=== PATIENT | female | born 1950 | race Caucasian/White ===

== ENCOUNTER → 2016-09-20 | Outpatient (CLI) | payer MEDICARE, OTHER ==
[~2016-09-20] MED LIST: ALPR.5T; ASP81TEC PO; ATR20T; ATR20T PO; CHOL200018 PO; CITA40TA19; CPR500T PO; CTLP20T; CTLP20T PO; CYAN250014 PO; Cod Liver Oil PO; DARI15TA4; DARI15TA4 PO; DOCU-161 PO; DOXY100C42 PO; GABA-486 PO; GABA-490 PO; GBPN300C PO; GLIP10TA13 PO; GLIP5TAB13; GLIP5TAB26; HYDR-3812 PO; IBP800T; LATA2.5D5 OP; LEVO500T69 PO; LSRT50T PO; MELO-198 PO; METF-380; METF-380 PO; METF500T4 PO; MTF500T; MTP25TSR; MTP25TSR PO; MULT-305 PO; OMEG1CAP58 PO; OMEP-10; OMEP20CA6; OMG1KC; OMG1KC PO; PIOG45TA; PIOG45TA PO; PRAV20TA3 PO; TRAV5DRO OP; VITA1TAB74 PO
--- OUTSIDE RECORDS SUMMARY | 2016-09-20 11:12 | XMS REPORT | Continuity of Care Document ---
Author Author [facility] Organization [facility] Address Unknown Phone Unavailable Care Team Providers Care [employer] Consultant Name Role Phone PCP Unavailable Source Comments Some departments are not documenting in the electronic medical record. If you do not see the information that you expected, contact Release of Information in the Health Information Management department at [phone] for further assistance in locating additional records.[facility] Active Allergies and Adverse Reactions Allergen Noted Date Severity Reactions Comments Sulfa (Sulfonamide 12/25/2013 UNKNOWN Was a child Antibiotics) Current Medications Prescription Sig. Disp. Refills Start End Date Status Date HYDROcodone/acetaminophen Take 1 Tab by mouth twice Active (NORCO; VICODIN) 5-325 mg daily. tablet gabapentin (NEURONTIN) Take 300 mg by mouth Active 300 mg capsule three times daily. metformin-ER(+) Take 500 mg by mouth Active (FORTAMET) 1,000 mg daily with dinner. tablet citalopram (CELEXA) 40 mg Take 40 mg by mouth Active tablet daily. MULTIVIT WITH Take by mouth. Active CALCIUM,IRON,MIN (WOMEN'S DAILY MULTIVITAMIN PO) fish oil /omega-3 fatty Take 1 Cap by mouth Active acids (SEA-OMEGA) daily. 340/1000 mg capsule latanoprost (XALATAN) Place 1 Drop into or Active 0.005 % ophthalmic around eye(s) at bedtime solution daily. gabapentin (NEURONTIN) Take 100 mg by mouth Active 100 mg capsule daily. topiramate (TOPAMAX) 25 Take 25 mg by mouth twice Active mg tablet daily. Active Problems Problem Noted Date Morbid obesity with BMI of 40.0-44.9, adult (HCC) 01/02/2014 Symptomatic abdominal panniculus 01/02/2014 Social History Tobacco Use Types Packs/Day Years Used Date Never Smoker Last Filed Vital Signs Vital Sign Reading Time Taken Blood Pressure 129/68 06/08/2015 11:45 AM HEALTH PHYSICIST Pulse 69 06/08/2015 11:45 AM HEALTH PHYSICIST Temperature 37.1 C (98.8 F) 12/25/2013 2:48 PM CDT Respiratory Rate - - Height 1.829 m (6') 06/08/2015 11:45 AM HEALTH PHYSICIST Weight 146.965 kg (324 lb) 06/08/2015 11:45 AM HEALTH PHYSICIST Body Mass Index 43.93 06/08/2015 11:45 AM HEALTH PHYSICIST Oxygen Saturation - - Plan of Care Health Maintenance Due Date Last Done Comments Physical (Comprehensive) 1957 Exam Pertussis Vaccine 1962 Tetanus Vaccine 1968 Cervical Cancer Screening 1972 Breast Cancer Screening 1991 Colorectal Cancer 2001 Screening Shingles Vaccine 2011 Influenza Vaccine 03/30/2016 Results from Last 3 Months Not on file
--- NOTE | 2016-09-20 18:52 | Diagnostic Imaging Report ---
Digital mammogram bilateral screening. This study was compared to the prior exams of 07/02/2015, 07/01/2014, and 06/24/2013. At this time, there are no current complaints. The current study was also evaluated with a Computer Aided Detection (CAD) system. FINDINGS: There are scattered fibroglandular densities in both retroareolar regions which could obscure a lesion. Overall, there does not appear to have been any significant change since the previous studies. There is no primary or secondary sign of malignancy noted. IMPRESSION: There is no evidence for malignancy. ACR BI-RADS Category 1: Negative. Result letter will be mailed to the patient. Note: At least 10% of breast cancer is not imaged by mammography. Dictated by: Dictated on workstation # [id number]
== END ==
LOC: RAD 11:08
PROVIDERS: ATTEND Nurse Practitioner Family
DX: Z12.31 Encounter for screening mammogram for malignant neoplasm of breast (principal)
CPT/HCPCS: 77067

== ENCOUNTER 2016-10-16 05:38 | Outpatient (CLI) | payer MEDICARE, OTHER ==
[~2016-10-16] VITALS: Ht 182.9 cm; Wt 149.7 kg
[~2016-10-16 05:38] MED LIST changes: -CYAN250014 PO; -GABA-490 PO; -HYDR-3812 PO
--- OUTSIDE RECORDS SUMMARY | 2016-10-16 05:41 | XMS REPORT | Continuity of Care Document ---
Author Author [facility] Organization [facility] Address Unknown Phone Unavailable Care Team Providers Care Entry Level Paralegal Name Role Phone PCP Unavailable Source Comments Some departments are not documenting in the electronic medical record. If you do not see the information that you expected, contact Release of Information in the Health Information Management department at [phone] for further assistance in locating additional records.[facility] Active Allergies and Adverse Reactions Allergen [...] Taken Blood Pressure 129/68 06/08/2015 11:45 AM WOOD PATTERNMAKER APPRENTICE Pulse 69 06/08/2015 11:45 AM WOOD PATTERNMAKER APPRENTICE Temperature 37.1 C (98.8 F) 12/25/2013 2:48 PM CDT Respiratory Rate - - Height 1.829 m (6') 06/08/2015 11:45 AM WOOD PATTERNMAKER APPRENTICE Weight 146.965 kg (324 lb) 06/08/2015 11:45 AM WOOD PATTERNMAKER APPRENTICE Body Mass Index 43.93 06/08/2015 11:45 AM WOOD PATTERNMAKER APPRENTICE Oxygen Saturation - - Plan of Care Health Maintenance Due Date Last Done Comments Physical (Comprehensive) 1957 Exam Pertussis Vaccine 1962 Tetanus Vaccine 1968 Cervical Cancer Screening 1972 Breast Cancer Screening 1991 Colorectal Cancer 2001 Screening Shingles Vaccine 2011 Influenza Vaccine 03/30/2016 Results from Last 3 Months Not on file
[2016-10-16] MEDS ORDERED: CYAN250014 PO (11:09)
[2016-10-16] MEDS ORDERED: GABA-490 PO ×2 (11:09)
[2016-10-16] MEDS ORDERED: HYDR-3812 PO (11:09)
== END 2016-10-16 12:46 ==
LOC: PREOP 05:38
PROVIDERS: ATTEND Surgery
DX: Z01.818 Encounter for other preprocedural examination (principal); Z86.010 Personal history of colon polyps

== ENCOUNTER 2016-10-19 06:13 | Day surgery (SDC) | payer MEDICARE, OTHER ==
[~2016-10-19] VITALS: Ht 182.9 cm; Wt 149.7 kg
[~2016-10-19 06:13] MED LIST changes: +CYAN250014 PO; +GABA-490 PO; +HYDR-3812 PO
[2016-10-19 06:30] VITALS: BP 149/66
[2016-10-19] MEDS ORDERED: LACTATED RINGERS 1,000 ML IV PRN (06:47)
[2016-10-19] MEDS ORDERED: proPOfol 200 MG/20 ML (DIPRIVAN) VIAL IV ONE (06:49)
[2016-10-19] MEDS ORDERED: LIDOCAINE PF 2% 10 ML (XYLOCAINE) AMP ONE (06:49)
[2016-10-19] MEDS ORDERED: ONDANSETRON 4 MG/2 ML (SDV) Z0FRAN ONE (06:49)
[2016-10-19] MEDS ORDERED: fentaNYL INJECTION 100 MCG/2 ML AMP ONE (06:49)
[2016-10-19] MEDS ORDERED: MIDAZOLAM 2 MG/2 ML (VERSED) VIAL ONE (06:49)
[2016-10-19] MEDS ORDERED: BUPIVACAINE 0.5% 30 ML (SENSORCAINE) VIAL ONE (07:10)
[2016-10-19] MEDS ORDERED: LIDOCAINE 1% INJ 20 ML (XYLOCAINE) VIAL ONE (07:10)
--- NOTE | 2016-10-19 07:42 | Progress Note-Pre Operative ---
Pre-Operative Progress Note H&P Reviewed The H&P was reviewed, patient examined and no changes noted. Date H&P Reviewed: Oct 19, 2016 Time H&P Reviewed: 07:41 Pre-Operative Diagnosis: history of rectal cancer, colon polyps and malfunctioning port JOSHUA MENDEZ DO Oct 19, 2016 7:42 am
[2016-10-19] MEDS ORDERED: SEVOFLURANE (ULTANE) 15 ML INHAL SOLN ONE (09:03)
[2016-10-19] MEDS ORDERED: morphine INJ 10 MG/ML 1ML (SYR OR VIAL) IVP PRN (09:15)
[2016-10-19] MEDS ORDERED: ONDANSETRON 4 MG/2 ML (SDV) Z0FRAN IVP PRN (09:15)
[2016-10-19] MEDS ORDERED: MEPERIDINE (DEMEROL) INJ 50 MG/ML IVP PRN (09:15)
--- NOTE | 2016-10-19 09:28 | Progress Note-Post Operative ---
Post-Operative Progess Note Pre-Operative Diagnosis history of rectal cancer, colon polyps and malfunctioning port Post-Operative Diagnosis same and cecal polyp ascending polyp splenic flexure polyp rectal inflammation Post-Op Procedure Note Date of Procedure: Oct 19, 2016 Name of Procedure: port removal, colonoscopy with hot bx polypectomy x 2, snare polypectomy x 1 and cold rectal biopsy x 1 Procedure Note/Findings see note Anesthesia Type general Estimated blood loss (mL): minimal Specimen(s) collected colon polyps, and rectal inflammation JOSHUA MENDEZ DO Oct 19, 2016 09:28
--- NOTE | 2016-10-19 09:54 | Anesthesia-General Post-Op ---
General Patient Condition Mental Status/LOC: Same as Preop Cardiovascular: Satisfactory Nausea/Vomiting: Absent Respiratory: Satisfactory Pain: Controlled Complications: Absent Post Op Complications Complications None Follow Up Care/Instructions Patient Instructions None needed. Anesthesia/Patient Condition Patient Condition Patient is doing well, no complaints, stable vital signs, no apparent adverse anesthesia problems. No complications reported per nursing. D/C home per [facility] [place] [facility] Criteria: LIBBY Jackson DO Oct 19, 2016 09:54
[2016-10-19 10:05] VITALS: BP 134/52
[2016-10-19 10:35] VITALS: BP 134/58
--- NOTE | 2016-10-19 11:29 | OPERATIVE REPORT ---
PROCEDURE PHYSICIAN: JOSHUA MENDEZ DATE OF PROCEDURE: 10/19/2016 PREOPERATIVE DIAGNOSIS: 1. Malfunctioning port. 2. History of colon polyps. 3. History of rectal cancer. POSTOPERATIVE DIAGNOSIS: 1. Malfunctioning port. 2. Colon polyps. PROCEDURE: Colonoscopy with hot biopsy polypectomy of the cecum with snare polypectomy of the ascending colon and hot biopsy polypectomy of the splenic flexure and colorectal biopsy. SURGEON: Stevie. ANESTHESIA: General. ESTIMATED BLOOD LOSS: Minimal. COMPLICATIONS: None. INDICATIONS: The patient is a 66-year-old female with history of rectal cancer and history of polyps. She has a malfunctioning port. She was explained risk and benefits of the procedure and wished to proceed with procedure. Consent was signed on the chart. PROCEDURE: The patient was taken to the operating room. She was prepped and draped in sterile fashion. A surgical pause was performed. Local anesthetic of 0.5% Marcaine 1% lidocaine 50/50 ratio was used to anesthetize the area of the port. Incision was made through the existing scar. Cautery was used to dissect down to the port which was then mobilized and released. The port and catheter were removed in its entirety. Hemostasis was achieved. Subcutaneous tissues were then reapproximated using 3-0 Vicryl. The skin was then closed using 4-0 Vicryl in a running subcuticular fashion. The area was then washed and dried and Mastisol and Steri-Strips were applied and sterile bandages were applied. The patient tolerated the procedure well. Colonoscopy was then performed. Digital rectal exam was performed. There was a foreign body such as a suture was able to be palpated and the anastomosis line was noted. The scope was inserted through the anus into the rectum, where the anastomosis was visualized. There was a piece of suture that was poking out with some slight inflammation around this area. The scope was inserted and advanced all the way to the cecum with minimal difficulty. Within the cecum there was a small polyp, which hot biopsy polypectomy was performed. The scope was then slowly retracted back. There was a little bit larger polyp in the ascending colon, which snare polypectomy was performed. The scope was continued be slowly retracted back. There were no polyps, masses or ulcerations within the transverse colon. At the splenic flexure there is another small polyp, which hot biopsy polypectomy was performed. The scope was then slowly retracted all the way back in the rectum noting no other pathology. Once in the rectum, there was the suture that was present with a little bit of inflammation around this. Biopsy of inflamed area was obtained. The scope was inserted and retracted multiple times noting no other pathology. The scope was then retracted until completely removed noting no other pathology. RECOMMENDATIONS: The patient will need to follow-up in 2 weeks to discuss pathology. Would recommend repeat colonoscopy in 6 to 12 months to reevaluate. If she has any problems prior to that, she should be reevaluated at that time. Job ID: [id number] Dictated Date: 10/19/2016 09:32:20 Water And Fire Technician Date: 10/19/2016 11:19:30 / kadi
--- OUTSIDE RECORDS SUMMARY | 2016-10-22 08:09 | XMS REPORT | Continuity of Care Document ---
Author Author [facility] Organization [facility] Address Unknown Phone Unavailable Care Team Providers Care Corrosion Control Fitter Name Role Phone PCP Unavailable Source Comments Some departments are not documenting in the electronic medical record. If you do not see the information that you expected, contact Release of Information in the Health Information Management department at [phone] for further assistance in locating additional records.[facility] Active Allergies and Adverse Reactions Allergen [...] Taken Blood Pressure 129/68 06/08/2015 11:45 AM MANAGER BIOSTATISTICS Pulse 69 06/08/2015 11:45 AM MANAGER BIOSTATISTICS Temperature 37.1 C (98.8 F) 12/25/2013 2:48 PM CDT Respiratory Rate - - Height 1.829 m (6') 06/08/2015 11:45 AM MANAGER BIOSTATISTICS Weight 146.965 kg (324 lb) 06/08/2015 11:45 AM MANAGER BIOSTATISTICS Body Mass Index 43.93 06/08/2015 11:45 AM MANAGER BIOSTATISTICS Oxygen Saturation - - Plan of Care Health Maintenance Due Date Last Done Comments Hepatitis C Screening 1950 Physical (Comprehensive) 1958 Exam Pertussis Vaccine 1962 Tetanus Vaccine 1968 Breast Cancer Screening 1991 Colorectal Cancer 2001 Screening Shingles Vaccine 2011 Osteoporosis Screening 2016 Prevnar/Pneumovax (#1) 2016 Influenza Vaccine 03/30/2017 Results from Last 3 Months Not on file
--- OUTSIDE RECORDS SUMMARY | 2016-10-22 08:13 | XMS REPORT | Continuity of Care Document ---
Author Author [facility] Organization [facility] Address Unknown Phone Unavailable Allergies Active Description Code Type Severity Reaction Onset Reported/Identified Relationship to Patient Clinical Status Yes Sulfa (Sulfonamide Antibiotics) [id number] Drug Allergy Unknown N/A 11/25/2015 Yes Sulfa (Sulfonamide Antibiotics) [id number] Drug Allergy Unknown HAD A CHILD 10/16/2016 Medications Problems Date Dx Coded Attending Type Code Diagnosis Diagnosed By 04/04/2009 Ot 154.1 04/04/2009 Ot 196.2 04/04/2009 Ot 250.00 04/04/2009 Ot 278.01 04/04/2009 Ot 311 04/04/2009 Ot 327.23 04/04/2009 Ot 401.9 04/04/2009 Ot V44.3 04/04/2009 Ot V58.69 05/24/2009 Ot 250.00 05/24/2009 Ot 272.4 05/24/2009 Ot 300.4 05/24/2009 Ot 401.9 05/24/2009 Ot 536.8 05/24/2009 Ot 682.2 05/24/2009 Ot 716.90 05/24/2009 Ot 729.6 05/24/2009 Ot 998.4 05/24/2009 Ot 998.59 05/24/2009 Ot 998.83 05/24/2009 Ot V10.06 05/24/2009 Ot V45.72 09/01/2009 Ot 154.0 09/01/2009 Ot 197.7 09/01/2009 Ot 278.01 09/01/2009 Ot 788.1 09/01/2009 Ot 788.41 09/01/2009 Ot V45.3 09/01/2009 Ot V58.69 09/01/2009 Ot V58.81 12/08/2009 Ot 154.0 12/08/2009 Ot 197.7 12/08/2009 Ot 244.9 12/08/2009 Ot 250.00 12/08/2009 Ot 278.01 12/08/2009 Ot 311 12/08/2009 Ot 327.23 12/08/2009 Ot 401.9 12/08/2009 Ot V45.3 12/08/2009 Ot V45.82 12/08/2009 Ot V58.66 12/08/2009 Ot V58.69 12/08/2009 Ot V87.41 12/16/2009 Ot 154.0 12/16/2009 Ot V15.3 12/16/2009 Ot V58.69 12/16/2009 Ot V87.41 03/20/2010 Ot 154.0 03/20/2010 Ot 197.7 03/20/2010 Ot 244.9 03/20/2010 Ot 250.00 03/20/2010 Ot 278.01 03/20/2010 Ot 311 03/20/2010 Ot 327.23 03/20/2010 Ot 401.9 03/20/2010 Ot V45.3 03/20/2010 Ot V45.82 03/20/2010 Ot V58.11 03/20/2010 Ot V58.66 03/20/2010 Ot V58.69 06/22/2010 Ot 154.0 MAL BETI RECTOSIGMOID JCT 06/22/2010 Ot 197.7 SECOND MALIG BETI LIVER 06/22/2010 Ot 244.9 HYPOTHYROIDISM NOS 06/22/2010 Ot 250.00 DIAB HAILEY WO COMPL, TYPE II OR UNSPEC TY 06/22/2010 Ot 278.01 MORBID OBESITY 06/22/2010 Ot 311 DEPRESSIVE DISORDER NEC 06/22/2010 Ot 327.23 OBSTRUCTIVE SLEEP APNEA (ADULT) (PEDIATR 06/22/2010 Ot 401.9 HYPERTENSION NOS 06/22/2010 Ot V15.3 HX OF IRRADIATION 06/22/2010 Ot V45.3 INTESTINAL BYPASS STATUS 06/22/2010 Ot V45.82 PERCUTANEOUS TRANSLUM CORON ANGIOPLASTY 06/22/2010 Ot V58.66 LONG-TERM (CURRENT) USE OF ASPIRIN 06/22/2010 Ot V58.69 OTH MED,LT,CURRENT USE 06/22/2010 Ot V87.41 PERSONAL HISTORY OF ANTINEOPLASTIC CHEMO 10/10/2010 Ot V10.06 HX-RECTAL ANAL MALIGN 10/10/2010 Ot V67.09 SURGERY FOLLOW-UP, OTHER SURGERY 10/25/2010 Ot 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.0 MAL BETI RECTOSIGMOID JCT 10/25/2010 Ot 197.7 SECOND MALIG BETI LIVER 10/25/2010 Ot 244.9 HYPOTHYROIDISM NOS 10/25/2010 Ot 250.00 DIAB HAILEY WO COMPL, TYPE II OR UNSPEC TY 10/25/2010 Ot 278.01 MORBID OBESITY 10/25/2010 Ot 311 DEPRESSIVE DISORDER NEC 10/25/2010 Ot 327.23 OBSTRUCTIVE SLEEP APNEA (ADULT) (PEDIATR 10/25/2010 Ot 401.9 HYPERTENSION NOS 10/25/2010 Ot V15.3 HX OF IRRADIATION 10/25/2010 Ot V45.3 INTESTINAL BYPASS STATUS 10/25/2010 Ot V45.82 PERCUTANEOUS TRANSLUM CORON ANGIOPLASTY 10/25/2010 Ot V58.66 LONG-TERM (CURRENT) USE OF ASPIRIN 10/25/2010 Ot V58.69 OTH MED,LT,CURRENT USE 10/25/2010 Ot V58.81 FIT/ADJ VASCULAR CATHETER 10/25/2010 Ot V87.41 PERSONAL HISTORY OF ANTINEOPLASTIC CHEMO 12/29/2010 Ot 041.3 KLEBSIELLA PNEUMONIAE 12/29/2010 Ot 041.4 E. COLI INFECT NOS 12/29/2010 Ot 250.00 DIAB HAILEY WO COMPL, TYPE II OR UNSPEC TY 12/29/2010 Ot 272.4 HYPERLIPIDEMIA NEC/NOS 12/29/2010 Ot 278.01 MORBID OBESITY 12/29/2010 Ot 311 DEPRESSIVE DISORDER NEC 12/29/2010 Ot 401.9 HYPERTENSION NOS 12/29/2010 Ot 599.0 URIN TRACT INFECTION NOS 12/29/2010 Ot 786.59 CHEST PAIN NEC 12/29/2010 Ot V85.43 BODY MASS INDEX 50.0-59.9, ADULT 03/01/2011 Ot 154.0 MAL BETI RECTOSIGMOID JCT 03/01/2011 Ot 197.7 SECOND MALIG BETI LIVER 03/01/2011 Ot 250.00 DIAB HAILEY WO COMPL, TYPE II OR UNSPEC TY 03/01/2011 Ot 278.01 MORBID OBESITY 03/01/2011 Ot V58.69 OTH MED,LT,CURRENT USE 03/01/2011 Ot V58.83 ENCOUNTER FOR THERAPEUTIC DRUG MONITORIN 07/04/2011 Ot 154.0 MAL BETI RECTOSIGMOID JCT 07/04/2011 Ot 197.7 SECOND MALIG BETI LIVER 07/04/2011 Ot 250.00 DIAB HAILEY WO COMPL, TYPE II OR UNSPEC TY 07/04/2011 Ot V58.69 OTH MED,LT,CURRENT USE 07/04/2011 Ot V58.81 FIT/ADJ VASCULAR CATHETER 10/18/2011 Ot 154.0 MAL BETI RECTOSIGMOID JCT 10/18/2011 Ot 197.7 SECOND MALIG BETI LIVER 10/18/2011 Ot 250.00 DIAB HAILEY WO COMPL, TYPE II OR UNSPEC TY 10/18/2011 Ot V58.69 OTH MED,LT,CURRENT USE 10/18/2011 Ot V58.81 FIT/ADJ VASCULAR CATHETER 02/21/2012 Ot 154.0 MAL BETI RECTOSIGMOID JCT 02/21/2012 Ot 197.7 SECOND MALIG BETI LIVER 02/21/2012 Ot 250.00 DIAB HAILEY WO COMPL, TYPE II OR UNSPEC TY 02/21/2012 Ot 780.79 OTH MALAISE FATIGUE 02/21/2012 Ot 788.41 URINARY FREQUENCY 02/21/2012 Ot 788.63 URGENCY OF URINATION 02/21/2012 Ot 791.9 ABN URINE FINDINGS NEC 02/21/2012 Ot V58.69 OTH MED,LT,CURRENT USE 06/16/2012 Ot 709.8 SKIN DISORDERS NEC 06/28/2012 Ot 530.11 REFLUX ESOPHAGITIS 06/28/2012 Ot 535.40 OTH SPECIFIED GASTRITIS,W/O MENTION OF H 06/28/2012 Ot V10.06 HX-RECTAL ANAL MALIGN 06/28/2012 Ot V67.09 SURGERY FOLLOW-UP, OTHER SURGERY 08/20/2012 Ot 154.0 MAL BETI RECTOSIGMOID JCT 08/20/2012 Ot 197.7 SECOND MALIG BETI LIVER 08/20/2012 Ot 250.00 DIAB HAILEY WO COMPL, TYPE II OR UNSPEC TY 08/20/2012 Ot V58.69 OTH MED,LT,CURRENT USE 11/18/2012 Ot 250.00 DIAB HAILEY WO COMPL, TYPE II OR UNSPEC TY 11/18/2012 Ot 272.4 HYPERLIPIDEMIA NEC/NOS 11/18/2012 Ot 401.9 HYPERTENSION NOS 11/18/2012 Ot V58.69 OTH MED,LT,CURRENT USE 11/19/2012 Ot 154.0 MAL BETI RECTOSIGMOID JCT 11/19/2012 Ot 197.7 SECOND MALIG BETI LIVER 11/19/2012 Ot 250.00 DIAB HAILEY WO COMPL, TYPE II OR UNSPEC TY 11/19/2012 Ot V58.69 OTH MED,LT,CURRENT USE 05/07/2013 LEONEL CURRAN Ot 154.0 MAL BETI RECTOSIGMOID JCT 05/07/2013 MAGDY, BOBAN N Ot 197.7 SECOND MALIG BETI LIVER 05/07/2013 MAGDY, BOBAN N Ot 250.00 DIAB HAILEY WO COMPL, TYPE II OR UNSPEC TY 05/07/2013 MAGDY, RAZAN N Ot V58.69 OTH MED,LT,CURRENT USE 08/11/2013 MAGDY, BOBAN N Ot 154.0 MAL BETI RECTOSIGMOID JCT 08/11/2013 MAGDY, BOBAN N Ot 197.7 SECOND MALIG BETI LIVER 08/11/2013 MAGDY, BOBAN N Ot 250.00 DIAB HAILEY WO COMPL, TYPE II OR UNSPEC TY 08/11/2013 MAGDY, BOBAN N Ot V58.69 OTH MED,LT,CURRENT USE 01/28/2014 MAGDY BOBAN N Ot 154.0 MAL BETI RECTOSIGMOID JCT 01/28/2014 MAGDY, BOBAN N Ot 197.7 SECOND MALIG BETI LIVER 01/28/2014 MAGDY, BOBAN N Ot 250.00 DIAB HAILEY WO COMPL, TYPE II OR UNSPEC TY 01/28/2014 MAGDYRAZAN N Ot V58.69 OTH MED,LT,CURRENT USE 03/22/2014 FABIOLA PHILLIPS Ot 882.1 OPN WOUND HAND-COMPLICAT 03/22/2014 FABIOLA PHILLIPS Ot E000.8 OTHER EXTERNAL CAUSE STATUS 03/22/2014 FABIOLA PHILLIPS Ot E001.0 ACTIVITIES INVOLVING WALKING, MARCHING A 03/22/2014 FABIOLA PHILLIPS Ot E849.0 ACCIDENT IN HOME 03/22/2014 FABIOLA PHILLIPS Ot E920.8 ACC-CUTTING INSTRUM NEC 03/22/2014 FABIOLA PHILLIPS Ot V06.1 [id number], COMBINED [ 07/05/2014 MAGDYLEONEL N Ot 154.0 MAL BETI RECTOSIGMOID JCT 07/05/2014 MAGDY BOBAN N Ot 197.7 SECOND MALIG BETI LIVER 07/05/2014 MAGDY, BOBAN N Ot 250.00 DIAB HAILEY WO COMPL, TYPE II OR UNSPEC TY 07/05/2014 MAGDY BOBAN N Ot V58.69 OTH MED,LT,CURRENT USE 07/05/2014 MAGDY, BOBAN N Ot V58.81 FIT/ADJ VASCULAR CATHETER 07/14/2014 COTY TERRY Saldana HYPERTRICHOLOGIST Ot 154.1 07/29/2014 COTY TERRY Saldana HYPERTRICHOLOGIST Ot V76.12 08/03/2014 RIA QUIROZ, EDGAR A Ot 250.00 08/03/2014 RIA QUIROZ, EDGAR A Ot 272.4 08/03/2014 RIA QUIROZ, EDGAR A Ot 401.9 08/03/2014 RIA QUIROZ, EDGAR A Ot V58.69 08/03/2014 RIA QUIROZ, EDGAR A Ot V72.62 08/05/2014 COTY TERRY Saldana HYPERTRICHOLOGIST Ot 250.00 08/05/2014 COTY TERRY S HYPERTRICHOLOGIST Ot 278.01 08/05/2014 COTY TERRY S HYPERTRICHOLOGIST Ot 465.9 08/05/2014 COTY TERRY Saldana HYPERTRICHOLOGIST Ot V10.06 08/05/2014 COTY TERRY Saldana HYPERTRICHOLOGIST Ot V58.69 08/05/2014 COTY TERRY S HYPERTRICHOLOGIST Ot V67.1 08/05/2014 COTY TERRY Saldana HYPERTRICHOLOGIST Ot V67.2 08/05/2014 COTY TERRY Saldana HYPERTRICHOLOGIST Ot V85.39 09/04/2014 Ot 153.9 09/04/2014 Ot 562.10 09/04/2014 Ot 154.1 09/04/2014 Ot 250.00 09/04/2014 Ot 153.9 09/04/2014 Ot 154.1 09/04/2014 Ot 250.00 09/04/2014 Ot 272.4 09/04/2014 Ot 278.01 09/04/2014 Ot 401.9 09/04/2014 Ot 998.59 09/04/2014 Ot 154.0 09/04/2014 Ot 250.00 09/04/2014 Ot 278.01 09/04/2014 Ot 998.59 09/04/2014 Ot V58.69 09/04/2014 Ot 244.9 09/04/2014 Ot 250.00 09/04/2014 Ot 250.00 09/04/2014 Ot 401.9 09/04/2014 Ot 250.00 09/04/2014 Ot 401.9 09/04/2014 Ot 154.1 09/04/2014 Ot 250.00 09/04/2014 Ot 244.9 09/04/2014 Ot 250.00 09/04/2014 Ot 272.4 09/04/2014 Ot 250.00 09/04/2014 Ot 250.00 09/04/2014 Ot 278.01 09/04/2014 Ot 401.9 09/04/2014 Ot 154.1 09/04/2014 Ot 250.00 09/04/2014 Ot 793.7 09/04/2014 Ot V76.12 09/04/2014 Ot 707.15 09/04/2014 Ot 715.37 09/04/2014 Ot 786.2 09/04/2014 Ot 250.00 09/04/2014 Ot 729.5 09/04/2014 Ot 250.00 09/04/2014 Ot 780.79 09/04/2014 Ot 250.00 09/04/2014 Ot 272.4 09/04/2014 Ot 401.9 09/04/2014 Ot V72.84 09/04/2014 Ot 250.00 09/04/2014 Ot 272.4 09/04/2014 Ot 401.9 09/04/2014 Ot V58.69 09/04/2014 ANGEL QUIROZ, ISA Lau Ot 272.4 09/04/2014 ANGEL QUIROZ, ISA Lau Ot 401.9 09/04/2014 TERRY ANSARI HYPERTRICHOLOGIST Ot 278.01 09/04/2014 TERRY ANSARI HYPERTRICHOLOGIST Ot V10.06 09/04/2014 TERRY ANSARI HYPERTRICHOLOGIST Ot V58.69 09/04/2014 TERRY ANSARI HYPERTRICHOLOGIST Ot V67.1 09/04/2014 TERRY ANSAIR HYPERTRICHOLOGIST Ot V67.2 09/04/2014 TERRY ANSARI HYPERTRICHOLOGIST Ot V85.41 09/04/2014 LEONEL CURRAN Ot V76.12 09/04/2014 TERRY ANSARI HYPERTRICHOLOGIST Ot 250.00 09/04/2014 TERRY ANSARI HYPERTRICHOLOGIST Ot 278.01 09/04/2014 TERRY ANSARI HYPERTRICHOLOGIST Ot 465.9 09/04/2014 TERRY ANSARI HYPERTRICHOLOGIST Ot V10.06 09/04/2014 TERRY ANSARI HYPERTRICHOLOGIST Ot V58.69 09/04/2014 TERRY ANSARI HYPERTRICHOLOGIST Ot V67.1 09/04/2014 TERRY ANSARI HYPERTRICHOLOGIST Ot V67.2 09/04/2014 TERRY ANSARI HYPERTRICHOLOGIST Ot V85.39 09/04/2014 TERRY ANSARI HYPERTRICHOLOGIST Ot 154.1 09/04/2014 TERRY ANSARI HYPERTRICHOLOGIST Ot V76.12 09/04/2014 RIA QUIROZ, EDGAR A Ot 250.00 09/04/2014 RIA QUIROZ, EDGAR A Ot 272.4 09/04/2014 RIA QUIROZ, EDGAR A Ot 401.9 09/04/2014 RIA QUIROZ, EDGAR A Ot V58.69 09/04/2014 RIA QUIROZ, EDGAR A Ot V72.62 09/04/2014 LEONEL CURRAN N Ot 154.0 09/04/2014 LEONEL CURRAN N Ot 197.7 09/04/2014 LEONEL CURRAN N Ot 250.00 09/04/2014 LEONEL CURRAN N Ot V58.69 11/24/2014 Ot 244.9 11/24/2014 Ot 250.00 11/24/2014 Ot 250.00 11/24/2014 Ot 401.9 11/24/2014 Ot 250.00 11/24/2014 Ot 401.9 11/24/2014 Ot 154.1 11/24/2014 Ot 250.00 11/24/2014 Ot 244.9 11/24/2014 Ot 250.00 11/24/2014 Ot 272.4 11/24/2014 Ot 250.00 11/24/2014 Ot 250.00 11/24/2014 Ot 278.01 11/24/2014 Ot 401.9 11/24/2014 Ot 154.1 11/24/2014 Ot 250.00 11/24/2014 Ot 793.7 11/24/2014 Ot V76.12 11/24/2014 Ot 707.15 11/24/2014 Ot 715.37 11/24/2014 Ot 786.2 11/24/2014 Ot 250.00 11/24/2014 Ot 729.5 11/24/2014 Ot 250.00 11/24/2014 Ot 780.79 11/24/2014 Ot 250.00 11/24/2014 Ot 272.4 11/24/2014 Ot 401.9 11/24/2014 Ot V72.84 11/24/2014 Ot 250.00 11/24/2014 Ot 272.4 11/24/2014 Ot 401.9 11/24/2014 Ot V58.69 11/24/2014 ANGEL QUIROZ, ISA Lau Ot 272.4 11/24/2014 ANGEL QUIROZ, ISA Lau Ot 401.9 11/24/2014 TERRY ANSARI HYPERTRICHOLOGIST Ot 278.01 11/24/2014 TERRY ANSARI S HYPERTRICHOLOGIST Ot V10.06 11/24/2014 ANSARITERRY Saldana S HYPERTRICHOLOGIST Ot V58.69 11/24/2014 TERRY ANSARI S HYPERTRICHOLOGIST Ot V67.1 11/24/2014 ANSARITERRY Saldana S HYPERTRICHOLOGIST Ot V67.2 11/24/2014 ANSARITERRY S HYPERTRICHOLOGIST Ot V85.41 11/24/2014 LEONEL CURRAN N Ot V76.12 11/24/2014 ANSARITERRY Saldana S HYPERTRICHOLOGIST Ot 250.00 11/24/2014 ANSARITERRY Saldana S HYPERTRICHOLOGIST Ot 278.01 11/24/2014 ANSARITERRY Saldana S HYPERTRICHOLOGIST Ot 465.9 11/24/2014 ANSARITERRY Saldana S HYPERTRICHOLOGIST Ot V10.06 11/24/2014 ANSARITERRY Saldana S HYPERTRICHOLOGIST Ot V58.69 11/24/2014 ANSARITERRY Saldana S HYPERTRICHOLOGIST Ot V67.1 11/24/2014 ANSARITERRY Saldana S HYPERTRICHOLOGIST Ot V67.2 11/24/2014 ANSARITERRY Saldana S HYPERTRICHOLOGIST Ot V85.39 11/24/2014 ANSARITERRY Saldana S HYPERTRICHOLOGIST Ot 154.1 11/24/2014 ANSARITERRY Saldana S HYPERTRICHOLOGIST Ot V76.12 11/24/2014 RIA QUIROZ, EDGAR Larios Ot 250.00 11/24/2014 RIA QUIROZ, EDGAR Larios Ot 272.4 11/24/2014 RIA QUIROZ, EDGAR Larios Ot 401.9 11/24/2014 RIA QUIROZ, EDGAR Larios Ot V58.69 11/24/2014 RIA QUIROZ, EDGAR Larios Ot V72.62 11/24/2014 LEONEL CURRAN N Ot 154.0 11/24/2014 LEONEL CURRAN N Ot 197.7 11/24/2014 MAGDYLEONEL SOTO N Ot 250.00 11/24/2014 MAGDYLEONEL SOTO N Ot V58.69 11/24/2014 LEONEL CURRAN N Ot 154.0 11/24/2014 MAGDYLEONEL SOTO N Ot 197.7 11/24/2014 MAGDYLEONEL SOTO N Ot 250.00 11/24/2014 LEONEL CURRAN N Ot V58.69 11/24/2014 MAGDYLEONEL SOTO N Ot 154.0 11/24/2014 MAGDYLEONEL SOTO N Ot 197.7 11/24/2014 MAGDYLEONEL SOTO N Ot 250.00 11/24/2014 MAGDYLEONEL SOTO N Ot V58.69 11/25/2014 MAGDYLEONEL SOTO N Ot 154.0 11/25/2014 MAGDYLEONEL SOTO N Ot 197.7 11/25/2014 MAGDYLEONEL SOTO N Ot 250.00 11/25/2014 LEONEL CURRAN N Ot V58.69 12/26/2014 TERRY ANSARI HYPERTRICHOLOGIST Ot 278.01 12/26/2014 TERRY ANSARI HYPERTRICHOLOGIST Ot V10.06 12/26/2014 TERRY ANSARI HYPERTRICHOLOGIST Ot V45.86 12/26/2014 TERRY ANSARI HYPERTRICHOLOGIST Ot V58.69 12/26/2014 TERRY ANSARI HYPERTRICHOLOGIST Ot V67.1 12/26/2014 TERRY ANSARI HYPERTRICHOLOGIST Ot V67.2 12/26/2014 TERRY ANSARI HYPERTRICHOLOGIST Ot V85.41 12/27/2014 RIA QUIROZ, EDGAR Larios Ot 250.00 12/27/2014 RIA QUIROZ, EDGAR Larios Ot 272.4 02/11/2015 Ot 244.9 02/11/2015 Ot 250.00 02/11/2015 Ot 250.00 02/11/2015 Ot 401.9 02/11/2015 Ot 250.00 02/11/2015 Ot 401.9 02/11/2015 Ot 154.1 02/11/2015 Ot 250.00 02/11/2015 Ot 244.9 02/11/2015 Ot 250.00 02/11/2015 Ot 272.4 02/11/2015 Ot 250.00 02/11/2015 Ot 250.00 02/11/2015 Ot 278.01 02/11/2015 Ot 401.9 02/11/2015 Ot 154.1 02/11/2015 Ot 250.00 02/11/2015 Ot 793.7 02/11/2015 Ot V76.12 02/11/2015 Ot 707.15 02/11/2015 Ot 715.37 02/11/2015 Ot 786.2 02/11/2015 Ot 250.00 02/11/2015 Ot 729.5 02/11/2015 Ot 250.00 02/11/2015 Ot 780.79 02/11/2015 Ot 250.00 02/11/2015 Ot 272.4 02/11/2015 Ot 401.9 02/11/2015 Ot V72.84 02/11/2015 Ot 250.00 02/11/2015 Ot 272.4 02/11/2015 Ot 401.9 02/11/2015 Ot V58.69 02/11/2015 ANGEL QUIROZ, ISA Lau Ot 272.4 02/11/2015 ANGEL QUIROZ, ISA Lau Ot 401.9 02/11/2015 COTYTERRY S HYPERTRICHOLOGIST Ot 278.01 02/11/2015 COTY TERRY S HYPERTRICHOLOGIST Ot V10.06 02/11/2015 COTY TERRY S HYPERTRICHOLOGIST Ot V58.69 02/11/2015 COTY TERRY S HYPERTRICHOLOGIST Ot V67.1 02/11/2015 COTY TERRY S HYPERTRICHOLOGIST Ot V67.2 02/11/2015 COTY TERRY S HYPERTRICHOLOGIST Ot V85.41 02/11/2015 LEONEL CURRAN Ot V76.12 02/11/2015 COTY TERRY S HYPERTRICHOLOGIST Ot 250.00 02/11/2015 ANSARI, TERRY S HYPERTRICHOLOGIST Ot 278.01 02/11/2015 COTY TERRY S HYPERTRICHOLOGIST Ot 465.9 02/11/2015 ANSARI, TERRY S HYPERTRICHOLOGIST Ot V10.06 02/11/2015 ANSARI, TERRY S HYPERTRICHOLOGIST Ot V58.69 02/11/2015 ANSARI, TERRY S HYPERTRICHOLOGIST Ot V67.1 02/11/2015 ANSARI, TERRY S HYPERTRICHOLOGIST Ot V67.2 02/11/2015 COTY TERRY S HYPERTRICHOLOGIST Ot V85.39 02/11/2015 COTY TERRY S HYPERTRICHOLOGIST Ot 154.1 02/11/2015 COTY TERRY S HYPERTRICHOLOGIST Ot V76.12 02/11/2015 RIA QUIROZ, EDGAR Larios Ot 250.00 02/11/2015 RIA QUIROZ, EDGAR A Ot 272.4 02/11/2015 RIA QUIROZ, EDGAR A Ot 401.9 02/11/2015 RIA QUIROZ, EDGAR A Ot V58.69 02/11/2015 RIA QUIROZ, EDGAR A Ot V72.62 02/11/2015 MAGDY, BOBAN N Ot 154.0 02/11/2015 MAGDY, BOBAN N Ot 197.7 02/11/2015 MAGYD, BOBAN N Ot 250.00 02/11/2015 MAGDY, BOBAN N Ot V58.69 02/11/2015 TERRY ANSARI S HYPERTRICHOLOGIST Ot 278.01 02/11/2015 TERRY ANSARI S HYPERTRICHOLOGIST Ot V10.06 02/11/2015 FATOU ANSARIAH S HYPERTRICHOLOGIST Ot V45.86 02/11/2015 ANSARI HILAH S HYPERTRICHOLOGIST Ot V58.69 02/11/2015 TERRY ANSARI S HYPERTRICHOLOGIST Ot V67.1 02/11/2015 TERRY ANSARI S HYPERTRICHOLOGIST Ot V67.2 02/11/2015 TERRY ANSARI S HYPERTRICHOLOGIST Ot V85.41 02/11/2015 RIA QUIROZ, EDGAR A Ot 250.00 02/11/2015 RIA QUIROZ, EDGAR A Ot 272.4 02/11/2015 MAGDY, BOBAN N Ot 154.0 02/11/2015 MAGDY, BOBAN N Ot 197.7 02/11/2015 MAGDY, BOBAN N Ot 250.00 02/11/2015 MAGDY, BOBAN N Ot V58.69 02/16/2015 MAGDY, BOBAN N Ot 154.0 02/16/2015 MAGDY, BOBAN N Ot 197.7 02/16/2015 MAGDY, BOBAN N Ot 250.00 02/16/2015 MAGDY, BOBAN N Ot V58.69 02/22/2015 MAGDY, BOBAN N Ot 154.0 MAL BETI RECTOSIGMOID JCT 02/22/2015 MAGDY, BOBAN N Ot 197.7 SECOND MALIG BETI LIVER 02/22/2015 MAGDY, BOBAN N Ot 250.00 DIAB HAILEY WO COMPL, TYPE II OR UNSPEC TY 02/22/2015 MAGDY, BOBAN N Ot V58.69 OTH MED,LT,CURRENT USE 02/22/2015 MAGDY, BOBAN N Ot V58.81 FIT/ADJ VASCULAR CATHETER 05/11/2015 LEONEL CURRAN N Ot 154.0 05/11/2015 LEONEL CURRAN Ot 197.7 05/11/2015 LEONEL CURRAN Ot 250.00 05/11/2015 LEONEL CURRAN Ot V58.69 06/01/2015 TERRY ANSARI HYPERTRICHOLOGIST Ot C19 06/01/2015 TERRY ANSARI HYPERTRICHOLOGIST Ot C78.7 06/01/2015 TERRY ANSARI HYPERTRICHOLOGIST Ot E11.9 06/01/2015 TERRY ANSARI HYPERTRICHOLOGIST Ot Z79.899 06/19/2015 LEONEL CURRAN Ot 154.0 06/19/2015 LEONEL CURRAN Ot 197.7 06/19/2015 LEONEL CURRAN Ot 250.00 06/19/2015 LEONEL CURRAN Ot V58.69 07/02/2015 Ot 154.1 07/02/2015 Ot 250.00 07/02/2015 Ot 244.9 07/02/2015 Ot 250.00 07/02/2015 Ot 272.4 07/02/2015 Ot 250.00 07/02/2015 Ot 250.00 07/02/2015 Ot 278.01 07/02/2015 Ot 401.9 07/02/2015 Ot 154.1 07/02/2015 Ot 250.00 07/02/2015 Ot 793.7 07/02/2015 Ot V76.12 07/02/2015 Ot 707.15 07/02/2015 Ot 715.37 07/02/2015 Ot 786.2 07/02/2015 Ot 250.00 07/02/2015 Ot 729.5 07/02/2015 Ot 250.00 07/02/2015 Ot 780.79 07/02/2015 Ot 250.00 07/02/2015 Ot 272.4 07/02/2015 Ot 401.9 07/02/2015 Ot V72.84 07/02/2015 Ot 250.00 07/02/2015 Ot 272.4 07/02/2015 Ot 401.9 07/02/2015 Ot V58.69 07/02/2015 ANGEL QUIROZ, ISA Lau Ot 272.4 07/02/2015 ISA ORTIZ MD Ot 401.9 07/02/2015 TERRY ANSARI HYPERTRICHOLOGIST Ot 278.01 07/02/2015 ANSARITERRY Saldana S HYPERTRICHOLOGIST Ot V10.06 07/02/2015 ANSARITERRY Saldana S HYPERTRICHOLOGIST Ot V58.69 07/02/2015 ANSARITERRY Saldana S HYPERTRICHOLOGIST Ot V67.1 07/02/2015 TERRY ANSARI S HYPERTRICHOLOGIST Ot V67.2 07/02/2015 ANSARITERRY Saldana S HYPERTRICHOLOGIST Ot V85.41 07/02/2015 LEONEL CURRAN Ot V76.12 07/02/2015 ANSARITERRY Saldana S HYPERTRICHOLOGIST Ot 250.00 07/02/2015 ANSARITERRY Saldana S HYPERTRICHOLOGIST Ot 278.01 07/02/2015 ANSARITERRY Saldana S HYPERTRICHOLOGIST Ot 465.9 07/02/2015 ANSARITERRY Saldana S HYPERTRICHOLOGIST Ot V10.06 07/02/2015 ANSARITERRY Saldana S HYPERTRICHOLOGIST Ot V58.69 07/02/2015 ANSARITERRY Saldana S HYPERTRICHOLOGIST Ot V67.1 07/02/2015 ANSARITERRY Saldana S HYPERTRICHOLOGIST Ot V67.2 07/02/2015 ANSARITERRY Saldana S HYPERTRICHOLOGIST Ot V85.39 07/02/2015 ANSARITERRY Saldana S HYPERTRICHOLOGIST Ot 154.1 07/02/2015 ANSARITERRY Saldana S HYPERTRICHOLOGIST Ot V76.12 07/02/2015 RIA QUIROZ, EDGAR A Ot 250.00 07/02/2015 RIA QUIROZ, EDGAR A Ot 272.4 07/02/2015 RIA QUIROZ, EDGAR A Ot 401.9 07/02/2015 RIA QUIROZ, EDGAR A Ot V58.69 07/02/2015 RIA QUIROZ, EDGAR A Ot V72.62 07/02/2015 ANSARITERRY Saldana HYPERTRICHOLOGIST Ot 278.01 07/02/2015 ANSARITERRY Saldana S HYPERTRICHOLOGIST Ot V10.06 07/02/2015 ANSARITERRY S HYPERTRICHOLOGIST Ot V45.86 07/02/2015 ANSARITERRY S HYPERTRICHOLOGIST Ot V58.69 07/02/2015 ANSARITERRY S HYPERTRICHOLOGIST Ot V67.1 07/02/2015 ANSARITERRY S HYPERTRICHOLOGIST Ot V67.2 07/02/2015 COTYTERRY S HYPERTRICHOLOGIST Ot V85.41 07/02/2015 RIA QUIROZ, EDGAR Larios Ot 250.00 07/02/2015 RIA QUIROZ, EDGAR Larios Ot 272.4 07/02/2015 MAGDY BOBAN N Ot C19 07/02/2015 MAGDY, BOBAN N Ot C78.7 07/02/2015 MAGDY, BOBAN N Ot E11.9 07/02/2015 MAGDY, BOBAN N Ot Z79.899 07/02/2015 ANSARI HILAH S HYPERTRICHOLOGIST Ot C19 07/02/2015 ANSARI HILAH S HYPERTRICHOLOGIST Ot C78.7 07/02/2015 ANSARI HILAH S HYPERTRICHOLOGIST Ot E11.9 07/02/2015 ANSARI HILAH S HYPERTRICHOLOGIST Ot Z79.899 07/02/2015 DEVIN VIVAS HYPERTRICHOLOGIST Ot E11.9 07/05/2015 DEVIN VIVAS HYPERTRICHOLOGIST Ot E11.9 07/06/2015 ANSARI HILAH S HYPERTRICHOLOGIST Ot Z12.31 07/09/2015 DEVIN VIVAS HYPERTRICHOLOGIST Ot E11.9 07/22/2015 ANSARI, HILAH S HYPERTRICHOLOGIST Ot Z12.31 08/03/2015 MAGDY, BOBAN N Ot C19 08/03/2015 MAGDY, BOBAN N Ot C78.7 08/03/2015 MAGDY, BOBAN N Ot E11.9 08/03/2015 MAGDY, BOBAN N Ot Z79.899 08/10/2015 MAGDY, BOBAN N Ot C19 MALIGNANT NEOPLASM OF RECTOSIGMOID JUNCT 08/10/2015 MAGDY BOBAN N Ot C78.7 SECONDARY MALIG NEOPLASM OF LIVER AND IN 08/10/2015 MAGDY, BOBAN N Ot E11.9 TYPE 2 DIABETES MELLITUS WITHOUT COMPLIC 08/10/2015 MAGDY BOBAN N Ot Z23 ENCOUNTER FOR IMMUNIZATION 08/10/2015 MAGDY, BOBAN N Ot Z45.2 ENCOUNTER FOR ADJUSTMENT AND MANAGEMENT 08/10/2015 MAGDY BOBAN N Ot Z79.899 OTHER CARE HOME (CURRENT) DRUG THERAPY 11/03/2015 MAGDY, BOBAN N Ot C19 11/03/2015 MAGDY, BOBAN N Ot C78.7 11/03/2015 MAGDY, BOBAN N Ot E11.9 11/03/2015 MAGDY BOBAN N Ot Z79.899 11/05/2015 ORTEGA DEVIN Matt HYPERTRICHOLOGIST Ot D51.8 11/05/2015 DEVIN VIVAS HYPERTRICHOLOGIST Ot E11.9 11/05/2015 DEVIN VIVAS HYPERTRICHOLOGIST Ot E55.9 11/05/2015 ORTEGA DEVIN M HYPERTRICHOLOGIST Ot E78.2 11/05/2015 DEVIN VIVAS HYPERTRICHOLOGIST Ot I10 11/12/2015 Ot 244.9 HYPOTHYROIDISM NOS 11/12/2015 Ot 250.00 DIAB HAILEY WO COMPL, TYPE II OR UNSPEC TY 11/12/2015 Ot 272.4 HYPERLIPIDEMIA NEC/NOS 11/12/2015 Ot 250.00 DIAB HAILEY WO COMPL, TYPE II OR UNSPEC TY 11/12/2015 Ot 250.00 DIAB HAILEY WO COMPL, TYPE II OR UNSPEC TY 11/12/2015 Ot 278.01 MORBID OBESITY 11/12/2015 Ot 401.9 HYPERTENSION NOS 11/12/2015 Ot 154.1 MALIGNANT NEOPL RECTUM 11/12/2015 Ot 250.00 DIAB HAILEY WO COMPL, TYPE II OR UNSPEC TY 11/12/2015 Ot 793.7 NOSP (ABN) FINDINGS ON RADIOLOGICAL OT 11/12/2015 Ot V76.12 OTH SCREEN MAMMO-MALIGN NEOPLASM OF KELLIE 11/12/2015 Ot 707.15 ULCER OF OTHER PART OF FOOT 11/12/2015 Ot 715.37 LOC OSTEOARTH NOS-ANKLE 11/12/2015 Ot 786.2 COUGH 11/12/2015 Ot 250.00 DIAB HAILEY WO COMPL, TYPE II OR UNSPEC TY 11/12/2015 Ot 729.5 PAIN IN LIMB 11/12/2015 Ot 250.00 DIAB HAILEY WO COMPL, TYPE II OR UNSPEC TY 11/12/2015 Ot 780.79 OTH MALAISE FATIGUE 11/12/2015 Ot 250.00 DIAB HAILEY WO COMPL, TYPE II OR UNSPEC TY 11/12/2015 Ot 272.4 HYPERLIPIDEMIA NEC/NOS 11/12/2015 Ot 401.9 HYPERTENSION NOS 11/12/2015 Ot V72.84 EXAM PRE-OPERATIVE NOS 11/12/2015 Ot 250.00 DIAB HAILEY WO COMPL, TYPE II OR UNSPEC TY 11/12/2015 Ot 272.4 HYPERLIPIDEMIA NEC/NOS 11/12/2015 Ot 401.9 HYPERTENSION NOS 11/12/2015 Ot V58.69 OTH MED,LT,CURRENT USE 11/12/2015 ISA ORTIZ MD Ot 272.4 HYPERLIPIDEMIA NEC/NOS 11/12/2015 ISA ORTIZ MD Ot 401.9 HYPERTENSION NOS 11/12/2015 ANSARITERRY Saldana S HYPERTRICHOLOGIST Ot 278.01 MORBID OBESITY 11/12/2015 TERRY ANSARI S HYPERTRICHOLOGIST Ot V10.06 HX-RECTAL ANAL MALIGN 11/12/2015 ANSARITERRY Saldana S HYPERTRICHOLOGIST Ot V58.69 OTH MED,LT,CURRENT USE 11/12/2015 ANSARITERRY Saldana S HYPERTRICHOLOGIST Ot V67.1 RADIOTHERAPY FOLLOW-UP 11/12/2015 ANSARITERRY Saldana S HYPERTRICHOLOGIST Ot V67.2 CHEMOTHERAPY FOLLOW-UP 11/12/2015 ANSARITERRY Saldana S HYPERTRICHOLOGIST Ot V85.41 BODY MASS INDEX 40.0-44.9, ADULT 11/12/2015 LEONEL CURRAN Ot V76.12 OTH SCREEN MAMMO-MALIGN NEOPLASM OF KELLIE 11/12/2015 ANSARITERRY Saldana S HYPERTRICHOLOGIST Ot 250.00 DIAB HAILEY WO COMPL, TYPE II OR UNSPEC TY 11/12/2015 ANSARITERRY Saldana S HYPERTRICHOLOGIST Ot 278.01 MORBID OBESITY 11/12/2015 ANSARITERRY Saldana S HYPERTRICHOLOGIST Ot 465.9 ACUTE URI NOS 11/12/2015 ANSARITERRY Saldana S HYPERTRICHOLOGIST Ot V10.06 HX-RECTAL ANAL MALIGN 11/12/2015 TERRY ANSARI S HYPERTRICHOLOGIST Ot V58.69 OTH MED,LT,CURRENT USE 11/12/2015 ANSARITERRY Saldana S HYPERTRICHOLOGIST Ot V67.1 RADIOTHERAPY FOLLOW-UP 11/12/2015 COTYTERRY S HYPERTRICHOLOGIST Ot V67.2 CHEMOTHERAPY FOLLOW-UP 11/12/2015 COTY TERRY S HYPERTRICHOLOGIST Ot V85.39 BODY MASS INDEX 39.0-39.9, ADULT 11/12/2015 COTY TERRY S HYPERTRICHOLOGIST Ot 154.1 MALIGNANT NEOPL RECTUM 11/12/2015 COTY TERRY S HYPERTRICHOLOGIST Ot V76.12 OTH SCREEN MAMMO-MALIGN NEOPLASM OF KELLIE 11/12/2015 EDGAR ROLLINS MD Ot 250.00 DIAB HAILEY WO COMPL, TYPE II OR UNSPEC TY 11/12/2015 EDGAR ROLLINS MD Ot 272.4 HYPERLIPIDEMIA NEC/NOS 11/12/2015 EDGAR ROLLINS MD Ot 401.9 HYPERTENSION NOS 11/12/2015 EDGAR ROLLINS MD Ot V58.69 OTH MED,LT,CURRENT USE 11/12/2015 EDGAR ROLLINS MD Ot V72.62 LAB EXAM ORDERED PART OF A ROUTINE GE 11/12/2015 TERRY ANSARI HYPERTRICHOLOGIST Ot 278.01 MORBID OBESITY 11/12/2015 TERRY ANSARI HYPERTRICHOLOGIST Ot V10.06 HX-RECTAL ANAL MALIGN 11/12/2015 TERRY ANSARI HYPERTRICHOLOGIST Ot V45.86 BARIATRIC SURGERY STATUS 11/12/2015 ANSARI TERRY Saldana HYPERTRICHOLOGIST Ot V58.69 OTH MED,LT,CURRENT USE 11/12/2015 TERRY ANSARI HYPERTRICHOLOGIST Ot V67.1 RADIOTHERAPY FOLLOW-UP 11/12/2015 TERRY ANSARIP Ot V67.2 CHEMOTHERAPY FOLLOW-UP 11/12/2015 TERRY ANSARIP Ot V85.41 BODY MASS INDEX 40.0-44.9, ADULT 11/12/2015 EDGAR ROLLINS MD Ot 250.00 DIAB HAILEY WO COMPL, TYPE II OR UNSPEC TY 11/12/2015 EDGAR ROLLINS MD Ot 272.4 HYPERLIPIDEMIA NEC/NOS 11/12/2015 TERRY ANSARI HYPERTRICHOLOGIST Ot C19 MALIGNANT NEOPLASM OF RECTOSIGMOID JUNCT 11/12/2015 TERRY ANSARI HYPERTRICHOLOGIST Ot C78.7 SECONDARY MALIG NEOPLASM OF LIVER AND IN 11/12/2015 TERRY ANSARI HYPERTRICHOLOGIST Ot E11.9 TYPE 2 DIABETES MELLITUS WITHOUT COMPLIC 11/12/2015 TERRY ANSARI HYPERTRICHOLOGIST Ot Z79.899 OTHER [facility] (CURRENT) DRUG THERAPY 11/12/2015 DEVIN VIVAS HYPERTRICHOLOGIST Ot E11.9 TYPE 2 DIABETES MELLITUS WITHOUT COMPLIC 11/12/2015 TERRY ANSARI HYPERTRICHOLOGIST Ot Z12.31 ENCNTR SCREEN MAMMOGRAM FOR MALIGNANT NE 11/12/2015 LEONEL CURRAN Ot C19 MALIGNANT NEOPLASM OF RECTOSIGMOID JUNCT 11/12/2015 LEONEL CURRAN Ot C78.7 SECONDARY MALIG NEOPLASM OF LIVER AND IN 11/12/2015 LEONEL CURRAN Ot E11.9 TYPE 2 DIABETES MELLITUS WITHOUT COMPLIC 11/12/2015 LEONEL CURRAN Ot Z79.899 OTHER [facility]ARE HOME (CURRENT) DRUG THERAPY 11/12/2015 DEVIN VIVAS Ot D51.8 OTHER VITAMIN B12 DEFICIENCY ANEMIAS 11/12/2015 DEVIN VIVASP Ot E11.9 TYPE 2 DIABETES MELLITUS WITHOUT COMPLIC 11/12/2015 DEVIN VIVASP Ot E55.9 VITAMIN D DEFICIENCY, UNSPECIFIED 11/12/2015 DEVIN VIVAS Ot E78.2 MIXED HYPERLIPIDEMIA 11/12/2015 DEVIN VIVASP Ot I10 ESSENTIAL (PRIMARY) HYPERTENSION 11/19/2015 JOSHUA MENDEZ DO Ot Z01.818 ENCOUNTER FOR OTHER PREPROCEDURAL EXAMIN 11/19/2015 JOSHUA MENDEZ DO Ot Z85.048 PRSNL HX OF MALIG NEOPLM OF RECTUM, RECT 11/23/2015 DEVIN VIVAS Ot D51.8 OTHER VITAMIN B12 DEFICIENCY ANEMIAS 11/23/2015 DEVIN VIVASP Ot E11.9 TYPE 2 DIABETES MELLITUS WITHOUT COMPLIC 11/23/2015 DEVIN VIVAS Ot E55.9 VITAMIN D DEFICIENCY, UNSPECIFIED 11/23/2015 DEVIN VIVASP Ot E78.2 MIXED HYPERLIPIDEMIA 11/23/2015 DEVIN VIVAS Ot I10 ESSENTIAL (PRIMARY) HYPERTENSION 11/25/2015 JOSHUA MENDEZ DO Ot K63.5 POLYP OF COLON 11/25/2015 JOSHUA MENDEZ DO Ot Z08 ENCNTR FOR FOLLOW-UP EXAM AFTER TRTMT FO 11/25/2015 JOSHUA MENDEZ DO Ot Z85.048 PRSNL HX OF MALIG NEOPLM OF RECTUM, RECT 12/20/2015 LEONEL CURRAN Ot C19 MALIGNANT NEOPLASM OF RECTOSIGMOID JUNCT 12/20/2015 LEONEL CURRAN Ot C78.7 SECONDARY MALIG NEOPLASM OF LIVER AND IN 12/20/2015 LEONEL CURRAN Ot E11.9 TYPE 2 DIABETES MELLITUS WITHOUT COMPLIC 12/20/2015 LEONEL CURRAN Ot Z79.899 OTHER [facility] (CURRENT) DRUG THERAPY 01/28/2016 LEONEL CURRAN Ot C19 MALIGNANT NEOPLASM OF RECTOSIGMOID JUNCT 01/28/2016 MAGDY, BOBAN N Ot C78.7 SECONDARY MALIG NEOPLASM OF LIVER AND IN 01/28/2016 LEONEL CURRAN N Ot E11.9 TYPE 2 DIABETES MELLITUS WITHOUT COMPLIC 01/28/2016 LEONEL CURRAN N Ot Z79.899 OTHER [facility]ARE HOME (CURRENT) DRUG THERAPY 01/31/2016 LEONEL CURRAN Ot C19 MALIGNANT NEOPLASM OF RECTOSIGMOID JUNCT 01/31/2016 LEONEL CURRAN N Ot C78.7 SECONDARY MALIG NEOPLASM OF LIVER AND IN 01/31/2016 LEONEL CURRAN N Ot E11.9 TYPE 2 DIABETES MELLITUS WITHOUT COMPLIC 01/31/2016 LEONEL CURRAN N Ot Z45.2 ENCOUNTER FOR ADJUSTMENT AND MANAGEMENT 01/31/2016 LEONEL CURRAN N Ot 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 02/06/2016 LEONEL CURRAN N Ot C19 MALIGNANT NEOPLASM OF RECTOSIGMOID JUNCT 02/06/2016 LEONEL CURRAN N Ot C78.7 SECONDARY MALIG NEOPLASM OF LIVER AND IN 02/06/2016 LEONEL CURRAN N Ot E11.9 TYPE 2 DIABETES MELLITUS WITHOUT COMPLIC 02/06/2016 LEONEL CURRAN N Ot Z45.2 ENCOUNTER FOR ADJUSTMENT AND MANAGEMENT 02/06/2016 LEONEL CURRAN N Ot 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 03/10/2016 LEONEL CURRAN Ot C19 MALIGNANT NEOPLASM OF RECTOSIGMOID JUNCT 03/10/2016 LEONEL CURRAN N Ot C78.7 SECONDARY MALIG NEOPLASM OF LIVER AND IN 03/10/2016 LEONEL CURRAN N Ot E11.9 TYPE 2 DIABETES MELLITUS WITHOUT COMPLIC 03/10/2016 LEONEL CURRAN N Ot Z45.2 ENCOUNTER FOR ADJUSTMENT AND MANAGEMENT 03/10/2016 LEONEL CURRAN N Ot 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 04/24/2016 Ot 250.00 DIAB HAILEY WO COMPL, TYPE II OR UNSPEC TY 04/24/2016 Ot 250.00 DIAB HAILEY WO COMPL, TYPE II OR UNSPEC TY 04/24/2016 Ot 278.01 MORBID OBESITY 04/24/2016 Ot 401.9 HYPERTENSION NOS 04/24/2016 Ot 154.1 MALIGNANT NEOPL RECTUM 04/24/2016 Ot 250.00 DIAB HAILEY WO COMPL, TYPE II OR UNSPEC TY 04/24/2016 Ot 793.7 NOSP (ABN) FINDINGS ON RADIOLOGICAL OT 04/24/2016 Ot V76.12 OTH SCREEN MAMMO-MALIGN NEOPLASM OF KELLIE 04/24/2016 Ot 707.15 ULCER OF OTHER PART OF FOOT 04/24/2016 Ot 715.37 LOC OSTEOARTH NOS-ANKLE 04/24/2016 Ot 786.2 COUGH 04/24/2016 Ot 250.00 DIAB HAILEY WO COMPL, TYPE II OR UNSPEC TY 04/24/2016 Ot 729.5 PAIN IN LIMB 04/24/2016 Ot 250.00 DIAB HAILEY WO COMPL, TYPE II OR UNSPEC TY 04/24/2016 Ot 780.79 OTH MALAISE FATIGUE 04/24/2016 Ot 250.00 DIAB HAILEY WO COMPL, TYPE II OR UNSPEC TY 04/24/2016 Ot 272.4 HYPERLIPIDEMIA NEC/NOS 04/24/2016 Ot 401.9 HYPERTENSION NOS 04/24/2016 Ot V72.84 EXAM PRE-OPERATIVE NOS 04/24/2016 Ot 250.00 DIAB HAILEY WO COMPL, TYPE II OR UNSPEC TY 04/24/2016 Ot 272.4 HYPERLIPIDEMIA NEC/NOS 04/24/2016 Ot 401.9 HYPERTENSION NOS 04/24/2016 Ot V58.69 OTH MED,LT,CURRENT USE 04/24/2016 ANGEL QUIROZ, ISA Lau Ot 272.4 HYPERLIPIDEMIA NEC/NOS 04/24/2016 ISA ORTIZ MD Ot 401.9 HYPERTENSION NOS 04/24/2016 TERRY ANSARIP Ot 278.01 MORBID OBESITY 04/24/2016 TERRY ANSARIP Ot V10.06 HX-RECTAL ANAL MALIGN 04/24/2016 TERRY ANSARIP Ot V58.69 OTH MED,LT,CURRENT USE 04/24/2016 TERRY ANSARIP Ot V67.1 RADIOTHERAPY FOLLOW-UP 04/24/2016 TERRY ANSARIP Ot V67.2 CHEMOTHERAPY FOLLOW-UP 04/24/2016 TERRY ANSARIP Ot V85.41 BODY MASS INDEX 40.0-44.9, ADULT 04/24/2016 LEONEL CURRAN Ot V76.12 OTH SCREEN MAMMO-MALIGN NEOPLASM OF KELLIE 04/24/2016 TERRY ANSARIP Ot 250.00 DIAB HAILEY WO COMPL, TYPE II OR UNSPEC TY 04/24/2016 TERRY ANSARI HYPERTRICHOLOGIST Ot 278.01 MORBID OBESITY 04/24/2016 TERRY ANSARI HYPERTRICHOLOGIST Ot 465.9 ACUTE URI NOS 04/24/2016 TERRY ANSARI HYPERTRICHOLOGIST Ot V10.06 HX-RECTAL ANAL MALIGN 04/24/2016 TERRY ANSARI Ot V58.69 OTH MED,LT,CURRENT USE 04/24/2016 TERRY ANSARI HYPERTRICHOLOGIST Ot V67.1 RADIOTHERAPY FOLLOW-UP 04/24/2016 TERRY ANSARI HYPERTRICHOLOGIST Ot V67.2 CHEMOTHERAPY FOLLOW-UP 04/24/2016 TERRY ANSARI HYPERTRICHOLOGIST Ot V85.39 BODY MASS INDEX 39.0-39.9, ADULT 04/24/2016 TERRY ANSARI HYPERTRICHOLOGIST Ot 154.1 MALIGNANT NEOPL RECTUM 04/24/2016 TERRY ANSARIP Ot V76.12 OTH SCREEN MAMMO-MALIGN NEOPLASM OF KELLIE 04/24/2016 EDGAR ROLLINS MD Ot 250.00 DIAB HAILEY WO COMPL, TYPE II OR UNSPEC TY 04/24/2016 EDGAR ROLLINS MD Ot 272.4 HYPERLIPIDEMIA NEC/NOS 04/24/2016 EDGAR ROLLINS MD Ot 401.9 HYPERTENSION NOS 04/24/2016 EDGAR ROLLINS MD Ot V58.69 OTH MED,LT,CURRENT USE 04/24/2016 EDGAR ROLLINS MD Ot V72.62 LAB EXAM ORDERED PART OF A ROUTINE GE 04/24/2016 TERRY ANSARIP Ot 278.01 MORBID OBESITY 04/24/2016 TERRY ANSARI HYPERTRICHOLOGIST Ot V10.06 HX-RECTAL ANAL MALIGN 04/24/2016 TERRY ANSARI HYPERTRICHOLOGIST Ot V45.86 BARIATRIC SURGERY STATUS 04/24/2016 TERRY ANSARI HYPERTRICHOLOGIST Ot V58.69 OTH MED,LT,CURRENT USE 04/24/2016 TERRY ANSARI HYPERTRICHOLOGIST Ot V67.1 RADIOTHERAPY FOLLOW-UP 04/24/2016 TERRY ANSARI HYPERTRICHOLOGIST Ot V67.2 CHEMOTHERAPY FOLLOW-UP 04/24/2016 TERRY ANSARI HYPERTRICHOLOGIST Ot V85.41 BODY MASS INDEX 40.0-44.9, ADULT 04/24/2016 EDGAR ROLLINS MD Ot 250.00 DIAB HAILEY WO COMPL, TYPE II OR UNSPEC TY 04/24/2016 EDGAR ROLLINS MD Ot 272.4 HYPERLIPIDEMIA NEC/NOS 04/24/2016 TERRY ANSARIP Ot C19 MALIGNANT NEOPLASM OF RECTOSIGMOID JUNCT 04/24/2016 TERRY ANSARIP Ot C78.7 SECONDARY MALIG NEOPLASM OF LIVER AND IN 04/24/2016 TERRY ANSARIP Ot E11.9 TYPE 2 DIABETES MELLITUS WITHOUT COMPLIC 04/24/2016 TERRY ANSARIP Ot Z79.899 OTHER [facility]ARE HOME (CURRENT) DRUG THERAPY 04/24/2016 DEVIN VIVAS HYPERTRICHOLOGIST Ot E11.9 TYPE 2 DIABETES MELLITUS WITHOUT COMPLIC 04/24/2016 TERRY ANSARI HYPERTRICHOLOGIST Ot Z12.31 ENCNTR SCREEN MAMMOGRAM FOR MALIGNANT NE 04/24/2016 DEVIN VIVAS HYPERTRICHOLOGIST Ot D51.8 OTHER VITAMIN B12 DEFICIENCY ANEMIAS 04/24/2016 DEVIN VIVAS HYPERTRICHOLOGIST Ot E11.9 TYPE 2 DIABETES MELLITUS WITHOUT COMPLIC 04/24/2016 DEVIN VIVAS HYPERTRICHOLOGIST Ot E55.9 VITAMIN D DEFICIENCY, UNSPECIFIED 04/24/2016 DEVIN VIVAS HYPERTRICHOLOGIST Ot E78.2 MIXED HYPERLIPIDEMIA 04/24/2016 DEVIN VIVAS HYPERTRICHOLOGIST Ot I10 ESSENTIAL (PRIMARY) HYPERTENSION 04/24/2016 LEONEL CURRAN Ot C19 MALIGNANT NEOPLASM OF RECTOSIGMOID JUNCT 04/24/2016 LEONEL CURRAN Ot C78.7 SECONDARY MALIG NEOPLASM OF LIVER AND IN 04/24/2016 LEONEL CURRAN Ot E11.9 TYPE 2 DIABETES MELLITUS WITHOUT COMPLIC 04/24/2016 LEONEL CURRAN Ot Z45.2 ENCOUNTER FOR ADJUSTMENT AND MANAGEMENT 04/24/2016 LEONEL CURRAN Ot 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 04/25/2016 LEONEL CURRAN Ot T82.594A [facility] COMPL OF INFUSION CATHETER, INITIAL 05/01/2016 LEONEL CURRAN Ot C19 MALIGNANT NEOPLASM OF RECTOSIGMOID JUNCT 05/01/2016 LEONEL CURRAN Ot C78.7 SECONDARY MALIG NEOPLASM OF LIVER AND IN 05/01/2016 LEONEL CURRAN Ot E11.9 TYPE 2 DIABETES MELLITUS WITHOUT COMPLIC 05/01/2016 LEONEL CURRAN Ot Z45.2 ENCOUNTER FOR ADJUSTMENT AND MANAGEMENT 05/01/2016 LEONEL CURRAN Ot Z79.899 OTHER [facility]ARE HOME (CURRENT) DRUG THERAPY 05/16/2016 LEONEL CURRAN Ot T82.594A [facility] COMPL OF INFUSION CATHETER, INITIAL 05/30/2016 Ot 153.9 05/30/2016 Ot 250.00 05/30/2016 Ot 285.9 08/30/2016 Ot 153.9 08/30/2016 Ot 250.00 08/30/2016 Ot 285.9 09/07/2016 Ot 154.1 MALIGNANT NEOPL RECTUM 09/07/2016 Ot 250.00 DIAB HAILEY WO COMPL, TYPE II OR UNSPEC TY 09/07/2016 Ot 793.7 NOSP (ABN) FINDINGS ON RADIOLOGICAL OT 09/07/2016 Ot V76.12 OTH SCREEN MAMMO-MALIGN NEOPLASM OF KELLIE 09/07/2016 Ot 707.15 ULCER OF OTHER PART OF FOOT 09/07/2016 Ot 715.37 LOC OSTEOARTH NOS-ANKLE 09/07/2016 Ot 786.2 COUGH 09/07/2016 Ot 250.00 DIAB HAILEY WO COMPL, TYPE II OR UNSPEC TY 09/07/2016 Ot 729.5 PAIN IN LIMB 09/07/2016 Ot 250.00 DIAB HAILEY WO COMPL, TYPE II OR UNSPEC TY 09/07/2016 Ot 780.79 OTH MALAISE FATIGUE 09/07/2016 Ot 250.00 DIAB HAILEY WO COMPL, TYPE II OR UNSPEC TY 09/07/2016 Ot 272.4 HYPERLIPIDEMIA NEC/NOS 09/07/2016 Ot 401.9 HYPERTENSION NOS 09/07/2016 Ot V72.84 EXAM PRE-OPERATIVE NOS 09/07/2016 Ot 250.00 DIAB HAILEY WO COMPL, TYPE II OR UNSPEC TY 09/07/2016 Ot 272.4 HYPERLIPIDEMIA NEC/NOS 09/07/2016 Ot 401.9 HYPERTENSION NOS 09/07/2016 Ot V58.69 OTH MED,LT,CURRENT USE 09/07/2016 ISA ORTIZ MD Ot 272.4 HYPERLIPIDEMIA NEC/NOS 09/07/2016 ISA ORTIZ MD Ot 401.9 HYPERTENSION NOS 09/07/2016 TERRY ANSARI Ot 278.01 MORBID OBESITY 09/07/2016 ANSARI, HILAH S HYPERTRICHOLOGIST Ot V10.06 HX-RECTAL ANAL MALIGN 09/07/2016 TERRY ANSARI HYPERTRICHOLOGIST Ot V58.69 OTH MED,LT,CURRENT USE 09/07/2016 TERRY ANSARI HYPERTRICHOLOGIST Ot V67.1 RADIOTHERAPY FOLLOW-UP 09/07/2016 TERRY ANSARI HYPERTRICHOLOGIST Ot V67.2 CHEMOTHERAPY FOLLOW-UP 09/07/2016 TERRY ANSARI HYPERTRICHOLOGIST Ot V85.41 BODY MASS INDEX 40.0-44.9, ADULT 09/07/2016 LEONEL CURRAN Krysta Ot V76.12 OTH SCREEN MAMMO-MALIGN NEOPLASM OF KELLIE 09/07/2016 TERRY ANSARI HYPERTRICHOLOGIST Ot 250.00 DIAB HAILEY WO COMPL, TYPE II OR UNSPEC TY 09/07/2016 TERRY ANSARI HYPERTRICHOLOGIST Ot 278.01 MORBID OBESITY 09/07/2016 ETRRY ANSARI HYPERTRICHOLOGIST Ot 465.9 ACUTE URI NOS 09/07/2016 TERRY ANSARI HYPERTRICHOLOGIST Ot V10.06 HX-RECTAL ANAL MALIGN 09/07/2016 TERRY ANSARI HYPERTRICHOLOGIST Ot V58.69 OTH MED,LT,CURRENT USE 09/07/2016 TERRY ANSARI HYPERTRICHOLOGIST Ot V67.1 RADIOTHERAPY FOLLOW-UP 09/07/2016 TERRY ANSARI HYPERTRICHOLOGIST Ot V67.2 CHEMOTHERAPY FOLLOW-UP 09/07/2016 TERRY ANSARI HYPERTRICHOLOGIST Ot V85.39 BODY MASS INDEX 39.0-39.9, ADULT 09/07/2016 ANSARITERRY Saldana HYPERTRICHOLOGIST Ot 154.1 MALIGNANT NEOPL RECTUM 09/07/2016 ANSARITERRY Saldana HYPERTRICHOLOGIST Ot V76.12 OTH SCREEN MAMMO-MALIGN NEOPLASM OF KELLIE 09/07/2016 EDGAR ROLLINS MD Ot 250.00 DIAB HAILEY WO COMPL, TYPE II OR UNSPEC TY 09/07/2016 EDGAR ROLLINS MD Ot 272.4 HYPERLIPIDEMIA NEC/NOS 09/07/2016 EDGAR ROLLINS MD Ot 401.9 HYPERTENSION NOS 09/07/2016 EDGAR ROLLINS MD Ot V58.69 OTH MED,LT,CURRENT USE 09/07/2016 EDGAR ROLLINS MD Ot V72.62 LAB EXAM ORDERED PART OF A ROUTINE GE 09/07/2016 COTY TERRY Saldana HYPERTRICHOLOGIST Ot 278.01 MORBID OBESITY 09/07/2016 TERRY ANSARI HYPERTRICHOLOGIST Ot V10.06 HX-RECTAL ANAL MALIGN 09/07/2016 TERRY ANSARI HYPERTRICHOLOGIST Ot V45.86 BARIATRIC SURGERY STATUS 09/07/2016 COTY TERRY Saldana HYPERTRICHOLOGIST Ot V58.69 OTH MED,LT,CURRENT USE 09/07/2016 TERRY ANSARI HYPERTRICHOLOGIST Ot V67.1 RADIOTHERAPY FOLLOW-UP 09/07/2016 TERRY ANSARI HYPERTRICHOLOGIST Ot V67.2 CHEMOTHERAPY FOLLOW-UP 09/07/2016 TERRY ANSARI HYPERTRICHOLOGIST Ot V85.41 BODY MASS INDEX 40.0-44.9, ADULT 09/07/2016 EDGAR ROLLINS MD Ot 250.00 DIAB HAILEY WO COMPL, TYPE II OR UNSPEC TY 09/07/2016 EDGAR ROLLINS MD Ot 272.4 HYPERLIPIDEMIA NEC/NOS 09/07/2016 TERRY ANSARIP Ot C19 MALIGNANT NEOPLASM OF RECTOSIGMOID JUNCT 09/07/2016 FATOU ANSARIBERTHA Saldana HYPERTRICHOLOGIST Ot C78.7 SECONDARY MALIG NEOPLASM OF LIVER AND IN 09/07/2016 TERRY ANSARI HYPERTRICHOLOGIST Ot E11.9 TYPE 2 DIABETES MELLITUS WITHOUT COMPLIC 09/07/2016 TERRY ANSARI HYPERTRICHOLOGIST Ot 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 09/07/2016 DEVIN VIVASP Ot E11.9 TYPE 2 DIABETES MELLITUS WITHOUT COMPLIC 09/07/2016 TERRY ANSARI HYPERTRICHOLOGIST Ot Z12.31 ENCNTR SCREEN MAMMOGRAM FOR MALIGNANT NE 09/07/2016 DEVIN VIVAS HYPERTRICHOLOGIST Ot D51.8 OTHER VITAMIN B12 DEFICIENCY ANEMIAS 09/07/2016 DEVIN VIVAS HYPERTRICHOLOGIST Ot E11.9 TYPE 2 DIABETES MELLITUS WITHOUT COMPLIC 09/07/2016 DEVIN VIVAS HYPERTRICHOLOGIST Ot E55.9 VITAMIN D DEFICIENCY, UNSPECIFIED 09/07/2016 DEVIN VIVAS HYPERTRICHOLOGIST Ot E78.2 MIXED HYPERLIPIDEMIA 09/07/2016 DEVIN VIVASP Ot I10 ESSENTIAL (PRIMARY) HYPERTENSION 09/07/2016 LEONEL CURRAN Ot T82.594A [facility] COMPL OF INFUSION CATHETER, INITIAL 09/07/2016 LEONEL CURRAN Ot C19 MALIGNANT NEOPLASM OF RECTOSIGMOID JUNCT 09/07/2016 LEONEL CURRAN Ot C78.7 SECONDARY MALIG NEOPLASM OF LIVER AND IN 09/07/2016 LEONEL CURRAN Ot E11.9 TYPE 2 DIABETES MELLITUS WITHOUT COMPLIC 09/07/2016 LEONEL CURRAN Ot Z45.2 ENCOUNTER FOR ADJUSTMENT AND MANAGEMENT 09/07/2016 LEONEL CURRAN Ot 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 09/07/2016 LOENEL CURRAN Ot C19 MALIGNANT NEOPLASM OF RECTOSIGMOID JUNCT 09/07/2016 LEONEL CURRAN Ot C78.7 SECONDARY MALIG NEOPLASM OF LIVER AND IN 09/07/2016 LEONEL CURRAN Ot E11.9 TYPE 2 DIABETES MELLITUS WITHOUT COMPLIC 09/07/2016 LEONEL CURRAN Ot Z45.2 ENCOUNTER FOR ADJUSTMENT AND MANAGEMENT 09/07/2016 LEONEL CURRAN Ot 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 09/20/2016 Ot 154.1 MALIGNANT NEOPL RECTUM 09/20/2016 Ot 250.00 DIAB HAILEY WO COMPL, TYPE II OR UNSPEC TY 09/20/2016 Ot 793.7 NOSP (ABN) FINDINGS ON RADIOLOGICAL OT 09/20/2016 Ot V76.12 OTH SCREEN MAMMO-MALIGN NEOPLASM OF KELLIE 09/20/2016 Ot 707.15 ULCER OF OTHER PART OF FOOT 09/20/2016 Ot 715.37 LOC OSTEOARTH NOS-ANKLE 09/20/2016 Ot 786.2 COUGH 09/20/2016 Ot 250.00 DIAB HAILEY WO COMPL, TYPE II OR UNSPEC TY 09/20/2016 Ot 729.5 PAIN IN LIMB 09/20/2016 Ot 250.00 DIAB HAILEY WO COMPL, TYPE II OR UNSPEC TY 09/20/2016 Ot 780.79 OTH MALAISE FATIGUE 09/20/2016 Ot 250.00 DIAB HAILEY WO COMPL, TYPE II OR UNSPEC TY 09/20/2016 Ot 272.4 HYPERLIPIDEMIA NEC/NOS 09/20/2016 Ot 401.9 HYPERTENSION NOS 09/20/2016 Ot V72.84 EXAM PRE-OPERATIVE NOS 09/20/2016 Ot 250.00 DIAB HAILEY WO COMPL, TYPE II OR UNSPEC TY 09/20/2016 Ot 272.4 HYPERLIPIDEMIA NEC/NOS 09/20/2016 Ot 401.9 HYPERTENSION NOS 09/20/2016 Ot V58.69 OTH MED,LT,CURRENT USE 09/20/2016 ANGEL QUIROZ, ISA Lau Ot 272.4 HYPERLIPIDEMIA NEC/NOS 09/20/2016 ANGEL QUIROZ, ISA Lau Ot 401.9 HYPERTENSION NOS 09/20/2016 TERRY ANSARI S HYPERTRICHOLOGIST Ot 278.01 MORBID OBESITY 09/20/2016 TERRY ANSARI S HYPERTRICHOLOGIST Ot V10.06 HX-RECTAL ANAL MALIGN 09/20/2016 TERRY ANSARI S HYPERTRICHOLOGIST Ot V58.69 OTH MED,LT,CURRENT USE 09/20/2016 TERRY ANSARI S HYPERTRICHOLOGIST Ot V67.1 RADIOTHERAPY FOLLOW-UP 09/20/2016 TERRY ANSARI S HYPERTRICHOLOGIST Ot V67.2 CHEMOTHERAPY FOLLOW-UP 09/20/2016 TERRY ANSARI S HYPERTRICHOLOGIST Ot V85.41 BODY MASS INDEX 40.0-44.9, ADULT 09/20/2016 LEONEL CURRAN Ot V76.12 OTH SCREEN MAMMO-MALIGN NEOPLASM OF KELLIE 09/20/2016 TERRY ANSARI S HYPERTRICHOLOGIST Ot 250.00 DIAB HAILEY WO COMPL, TYPE II OR UNSPEC TY 09/20/2016 TERRY ANSARI S HYPERTRICHOLOGIST Ot 278.01 MORBID OBESITY 09/20/2016 TERRY ANSARI S HYPERTRICHOLOGIST Ot 465.9 ACUTE URI NOS 09/20/2016 TERRY ANSARI S HYPERTRICHOLOGIST Ot V10.06 HX-RECTAL ANAL MALIGN 09/20/2016 TERRY ANSARI S HYPERTRICHOLOGIST Ot V58.69 OTH MED,LT,CURRENT USE 09/20/2016 TERRY ANSARI S HYPERTRICHOLOGIST Ot V67.1 RADIOTHERAPY FOLLOW-UP 09/20/2016 TERRY ANSARI S HYPERTRICHOLOGIST Ot V67.2 CHEMOTHERAPY FOLLOW-UP 09/20/2016 TERRY ANSARI S HYPERTRICHOLOGIST Ot V85.39 BODY MASS INDEX 39.0-39.9, ADULT 09/20/2016 TERRY ANSARI S HYPERTRICHOLOGIST Ot 154.1 MALIGNANT NEOPL RECTUM 09/20/2016 TERRY ANSARI S HYPERTRICHOLOGIST Ot V76.12 OTH SCREEN MAMMO-MALIGN NEOPLASM OF KELLIE 09/20/2016 RIA QUIROZ, EDGAR Larios Ot 250.00 DIAB HAILEY WO COMPL, TYPE II OR UNSPEC TY 09/20/2016 EDGAR ROLLINS MD Ot 272.4 HYPERLIPIDEMIA NEC/NOS 09/20/2016 EDGAR ROLLINS MD Ot 401.9 HYPERTENSION NOS 09/20/2016 EDGAR ROLLINS MD Ot V58.69 OTH MED,LT,CURRENT USE 09/20/2016 EDGAR ROLLINS MD Ot V72.62 LAB EXAM ORDERED PART OF A ROUTINE GE 09/20/2016 TERRY ANSARIP Ot 278.01 MORBID OBESITY 09/20/2016 TERRY ANSARI HYPERTRICHOLOGIST Ot V10.06 HX-RECTAL ANAL MALIGN 09/20/2016 TERRY ANSARIP Ot V45.86 BARIATRIC SURGERY STATUS 09/20/2016 TERRY ANSARI Ot V58.69 OTH MED,LT,CURRENT USE 09/20/2016 TERRY ANSARI HYPERTRICHOLOGIST Ot V67.1 RADIOTHERAPY FOLLOW-UP 09/20/2016 TERRY ANSARIP Ot V67.2 CHEMOTHERAPY FOLLOW-UP 09/20/2016 TERRY ANSARI HYPERTRICHOLOGIST Ot V85.41 BODY MASS INDEX 40.0-44.9, ADULT 09/20/2016 EDGAR ROLLINS MD Ot 250.00 DIAB HAILEY WO COMPL, TYPE II OR UNSPEC TY 09/20/2016 EDGAR ROLLINS MD Ot 272.4 HYPERLIPIDEMIA NEC/NOS 09/20/2016 TERRY ANSARI HYPERTRICHOLOGIST Ot C19 MALIGNANT NEOPLASM OF RECTOSIGMOID JUNCT 09/20/2016 TERRY ANSARI HYPERTRICHOLOGIST Ot C78.7 SECONDARY MALIG NEOPLASM OF LIVER AND IN 09/20/2016 TERRY ANSARI HYPERTRICHOLOGIST Ot E11.9 TYPE 2 DIABETES MELLITUS WITHOUT COMPLIC 09/20/2016 TERRY ANSARI HYPERTRICHOLOGIST Ot Z79.899 OTHER CARE HOME (CURRENT) DRUG THERAPY 09/20/2016 DEVIN VIVASP Ot E11.9 TYPE 2 DIABETES MELLITUS WITHOUT COMPLIC 09/20/2016 TERRY ANSARI HYPERTRICHOLOGIST Ot Z12.31 ENCNTR SCREEN MAMMOGRAM FOR MALIGNANT NE 09/20/2016 DEVIN VIVASP Ot D51.8 OTHER VITAMIN B12 DEFICIENCY ANEMIAS 09/20/2016 DEVIN VIVASP Ot E11.9 TYPE 2 DIABETES MELLITUS WITHOUT COMPLIC 09/20/2016 DEVIN VIVAS Ot E55.9 VITAMIN D DEFICIENCY, UNSPECIFIED 09/20/2016 DEVIN VIVAS Ot E78.2 MIXED HYPERLIPIDEMIA 09/20/2016 DEVIN VIVAS Ot I10 ESSENTIAL (PRIMARY) HYPERTENSION 09/20/2016 LEONLE CURRAN Ot T82.594A [facility] COMPL OF INFUSION CATHETER, INITIAL 09/20/2016 LEONEL CURRAN Krysta Ot C19 MALIGNANT NEOPLASM OF RECTOSIGMOID JUNCT 09/20/2016 LEONEL CURRAN Krysta Ot C78.7 SECONDARY MALIG NEOPLASM OF LIVER AND IN 09/20/2016 LEONEL CURRAN Krysta Ot E11.9 TYPE 2 DIABETES MELLITUS WITHOUT COMPLIC 09/20/2016 LEONEL CURRAN Krysta Ot Z45.2 ENCOUNTER FOR ADJUSTMENT AND MANAGEMENT 09/20/2016 LEONEL CURRAN Krysta Ot 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 09/21/2016 DEVIN VIVAS Ot Z12.31 ENCNTR SCREEN MAMMOGRAM FOR MALIGNANT NE 09/21/2016 LEONEL CURRAN Krysta Ot C19 MALIGNANT NEOPLASM OF RECTOSIGMOID JUNCT 09/21/2016 LEONEL CURRAN Krysta Ot C78.7 SECONDARY MALIG NEOPLASM OF LIVER AND IN 09/21/2016 LEONEL CURRAN Krysta Ot E11.9 TYPE 2 DIABETES MELLITUS WITHOUT COMPLIC 09/21/2016 LEONEL CURRAN Krysta Ot Z45.2 ENCOUNTER FOR ADJUSTMENT AND MANAGEMENT 09/21/2016 LEONEL CURRAN Krysta Ot 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 09/21/2016 DEVIN VIVAS Ot Z12.31 ENCNTR SCREEN MAMMOGRAM FOR MALIGNANT NE 10/11/2016 DEVIN VIVAS Ot Z12.31 ENCNTR SCREEN MAMMOGRAM FOR MALIGNANT NE 10/16/2016 Ot 250.00 DIAB [place] WO COMPL, TYPE II OR UNSPEC TY 10/16/2016 Ot 272.4 HYPERLIPIDEMIA NEC/NOS 10/16/2016 Ot 401.9 HYPERTENSION NOS 10/16/2016 Ot V58.69 OTH MED,LT,CURRENT USE 10/17/2016 JOSHUA MENDEZ DO Ot Z01.818 ENCOUNTER FOR OTHER PREPROCEDURAL EXAMIN 10/17/2016 JOSHUA MENDEZ DO Ot Z86.010 PERSONAL HISTORY OF COLONIC POLYPS 10/17/2016 JOSHUA MENDEZ DO Ot Z01.818 ENCOUNTER FOR OTHER PREPROCEDURAL EXAMIN 10/17/2016 JOSHUA MENDEZ DO Ot Z86.010 PERSONAL HISTORY OF COLONIC POLYPS Procedures Results Test Result Range Capillary blood glucose measurement by glucometer (mass/volume) - 10/19/16 06: 42 Capillary blood glucose measurement by glucometer (mass/volume) 162 mg/dL 70-110 Methicillin resistant Staphylococcus aureus (MRSA) screening culture - 07:50 Methicillin resistant Staphylococcus aureus (MRSA) screening culture NEG NRG Encounters ACCT No. Visit Date/Time Discharge Status Pt. Type Provider Facility Loc./Unit Complaint [id number] 10/16/2016 05:38:00 2016 12:46:00 DIS Outpatient JOSHUA MENDEZ DO [facility] PREOP HX CANCER;HX POLYPS [id number] 04/21/2016 10:21:00 2015 10:30:00 DIS Outpatient LEONEL CURRAN [facility] ONC LAB [id number] 01/28/2016 11:28:00 2015 00:01:00 DIS Outpatient LEONEL CURRAN [facility] ONC LAB [id number] 11/25/2015 12:36:00 2015 16:00:00 DIS Outpatient JOSHUA MENDEZ DO [facility] [address] HISTORY OF RECTAL CANCER [id number] 11/19/2015 05:37:00 2015 09:02:00 DIS Outpatient JOSHUA MENDEZ DO [facility] PREOP HISTORY OF RECTAL CANCER [id number] 08/02/2015 10:34:00 2015 00:01:00 DIS Outpatient LEONEL CURRAN [facility] ONC LAB [id number] 05/12/2015 11:36:00 2014 23:59:59 CLS Outpatient DEVIN VIVAS [facility] LAB [id number] 05/12/2015 11:08:00 2014 23:59:59 CLS Outpatient TERRY ANSARI [facility] ONC [id number] 02/16/2015 11:29:00 2014 00:01:00 DIS Outpatient LEONEL CURRAN [facility] ONC LAB [id number] 11/24/2014 12:46:00 2014 23:59:59 CLS Outpatient EDGAR ROLLINS MD [facility] LAB [id number] 11/24/2014 12:42:00 2014 23:59:59 CLS Outpatient TERRY ANSARI HYPERTRICHOLOGIST [facility] ONC [id number] 07/01/2014 09:28:00 2013 00:01:00 DIS Outpatient LEONEL CURRAN [facility] ONC LAB [id number] 07/01/2014 11:01:00 2013 23:59:59 CLS Outpatient TERRY ANSARI HYPERTRICHOLOGIST [facility] RAD SCREENING [id number] 07/01/2014 09:31:00 2013 23:59:59 CLS Outpatient EDGAR ROLLINS MD [facility] LAB [id number] 05/12/2014 08:53:00 2013 23:59:59 CLS Outpatient TERRY ANSARI HYPERTRICHOLOGIST [facility] RAD RECTAL CA [id number] 04/30/2014 12:58:00 2013 23:59:59 CLS Outpatient TERRY ANSARI HYPERTRICHOLOGIST [facility] ONC [id number] 03/22/2014 21:09:00 2013 23:01:00 DIS Emergency FABIOLA PHILLIPS [facility] ER NAIL IN L BIG TOE [id number] 10/30/2013 13:42:00 2013 00:01:00 DIS Outpatient LEONEL CURRAN [facility] ONC LAB [id number] 05/13/2013 13:13:00 2013 00:01:00 DIS Outpatient LEONEL CURRAN [facility] ONC LAB [id number] 06/24/2013 14:53:00 2012 23:59:59 CLS Outpatient LEONEL CURRAN [facility] RAD SCREENING [id number] 05/13/2013 13:10:00 2012 23:59:59 CLS Outpatient TERRY ANSARI HYPERTRICHOLOGIST [facility] ONC [id number] 02/06/2013 11:15:00 2012 00:01:00 DIS Outpatient LEOENL CURRAN [facility] ONC LAB [id number] 02/06/2013 11:10:00 2012 23:59:59 CLS Outpatient ISA ORTIZ MD [facility] LAB [id number] 10/19/2016 08:00:00 PEN Preadmit JOSHUA MENDEZ DO [facility] [address] HX POLYPS;HX CANCER [id number] 09/20/2016 11:41:00 ACT Outpatient LEONEL CURRAN [facility] ONC LAB [id number] 09/20/2016 11:08:00 ACT Outpatient DEVIN VIVAS HYPERTRICHOLOGIST [facility] RAD SCREENING [id number] 04/24/2016 11:51:00 ACT Outpatient LEONEL CURRAN [facility] RAD COMPLICATION OF IMPLANTED DEVICE [id number] 11/02/2015 12:07:00 ACT Outpatient DEVIN VIVAS HYPERTRICHOLOGIST [facility] LAB [id number] 07/02/2015 11:13:00 ACT Outpatient TERRY ANSARI HYPERTRICHOLOGIST [facility] RAD SCREENING [id number] 09/04/2014 11:49:00 Document Registration [id number] 09/04/2014 11:49:00 Document Registration [id number] 09/04/2014 11:49:00 Document Registration [id number] 09/04/2014 11:49:00 Document Registration [id number] 11/19/2012 00:00:00 Document Registration [id number] 11/13/2012 13:22:00 Document Registration [id number] 08/20/2012 14:00:00 Document Registration [id number] 08/20/2012 12:09:00 Document Registration [id number] 06/28/2012 10:54:00 Document Registration [id number] 06/25/2012 07:26:00 Document Registration [id number] 06/15/2012 10:05:00 Document Registration [id number] 05/22/2012 11:49:00 Document Registration [id number] 02/15/2012 11:35:00 Document Registration [id number] 02/15/2012 11:30:00 Document Registration [id number] 11/24/2011 10:51:00 Document Registration [id number] 10/12/2011 11:45:00 Document Registration [id number] 07/20/2011 11:30:00 Document Registration [id number] 06/15/2011 13:09:00 Document Registration [id number] 06/15/2011 13:06:00 Document Registration [id number] 06/15/2011 12:29:00 Document Registration [id number] 04/04/2011 09:03:00 Document Registration [id number] 03/01/2011 13:52:00 Document Registration [id number] 02/22/2011 15:26:00 Document Registration [id number] 12/28/2010 14:57:00 Document Registration [id number] 12/01/2010 11:08:00 Document Registration [id number] 10/10/2010 07:25:00 Document Registration [id number] 10:24:00 Document Registration [id number] 09/05/2010 11:25:00 Document Registration [id number] 06/15/2010 13:40:00 Document Registration [id number] 03/22/2010 08:03:00 Document Registration [id number] 02/21/2010 12:52:00 Document Registration [id number] 01/03/2010 13:04:00 Document Registration [id number] 12/15/2009 13:46:00 Document Registration [id number] 11/26/2009 12:14:00 Document Registration [id number] 11/26/2009 12:12:00 Document Registration [id number] 09/30/2009 14:20:00 Document Registration [id number] 08/26/2009 11:30:00 Document Registration [id number] 05/13/2009 11:18:00 Document Registration [id number] 05/11/2009 13:31:00 Document Registration [id number] 05/06/2009 14:42:00 Document Registration [id number] 05/05/2009 12:53:00 Document Registration [id number] 03/15/2009 09:46:00 Document Registration [id number] 03/05/2009 15:15:00 Document Registration [id number] 01/20/2009 13:20:00 Document Registration
== END 2016-10-19 10:50 | disposition home or self-care (01) ==
LOC: DELPENDDIS → SDC 06:13
PROVIDERS: ATTEND Surgery
DX: Z12.11 Encounter for screening for malignant neoplasm of colon (principal); D12.0 Benign neoplasm of cecum; K63.5 Polyp of colon; Z85.048 Personal history of other malignant neoplasm of rectum, rectosigmoid junction, and anus; T82.9XXA Unspecified complication of cardiac and vascular prosthetic device, implant and graft, initial encounter
CPT/HCPCS: 82962; 87081; 88305

== ENCOUNTER 2016-12-05 10:04 | Outpatient (RCR) | payer MEDICARE, OTHER ==
--- OUTSIDE RECORDS SUMMARY | 2016-09-20 11:43 | XMS REPORT | Continuity of Care Document ---
Author Author [facility] Organization [facility] Address Unknown Phone Unavailable Care Team Providers Care Stereo Operator Name Role Phone PCP Unavailable Source Comments Some departments are not documenting in the electronic medical record. If you do not see the information that you expected, contact Release of Information in the Health Information Management department at [phone] for further assistance in locating additional records.[facility] Active Allergies and Adverse Reactions Allergen Noted [...] Taken Blood Pressure 129/68 06/08/2015 11:45 AM MANUFACTURING MANAGEMENT ASSOCIATE Pulse 69 06/08/2015 11:45 AM MANUFACTURING MANAGEMENT ASSOCIATE Temperature 37.1 C (98.8 F) 12/25/2013 2:48 PM CDT Respiratory Rate - - Height 1.829 m (6') 06/08/2015 11:45 AM MANUFACTURING MANAGEMENT ASSOCIATE Weight 146.965 kg (324 lb) 06/08/2015 11:45 AM MANUFACTURING MANAGEMENT ASSOCIATE Body Mass Index 43.93 06/08/2015 11:45 AM MANUFACTURING MANAGEMENT ASSOCIATE Oxygen Saturation - - Plan of Care Health Maintenance Due Date Last Done Comments Physical (Comprehensive) 1957 Exam Pertussis Vaccine 1962 Tetanus Vaccine 1968 Cervical Cancer Screening 1972 Breast Cancer Screening 1991 Colorectal Cancer 2001 Screening Shingles Vaccine 2011 Influenza Vaccine 03/30/2016 Results from Last 3 Months Not on file
[2016-12-05 10:27] LABS: BASOPHILS % (AUTO) 1 % (0-10); EOSINOPHILS # (AUTO) 0.2 10^3/uL (0.0-0.3); EOSINOPHILS % (AUTO) 4 % (0-10); LYMPHOCYTES # (AUTO) 1.6 X 10^3 (1.0-4.0); LYMPHOCYTES % (AUTO) 37 % (12-44); MEAN CORPUSCULAR HEMOGLOBIN 30 PG (25-34); MEAN CORPUSCULAR HGB CONC 33 G/DL (32-36); MEAN CORPUSCULAR VOLUME 89 FL (80-99); MEAN PLATELET VOLUME 9.4 FL (7.4-10.4); MONOCYTES # (AUTO) 0.4 X 10^3 (0.0-1.0); MONOCYTES % (AUTO) 9 % (0-12); NEUTROPHILS # (AUTO) 2.2 X 10^3 (1.8-7.8); NEUTROPHILS % (AUTO) 50 % (42-75); PLATELET COUNT 201 10^3/uL (130-400); RED BLOOD COUNT 4.75 10^6/uL (4.35-5.85); RED CELL DISTRIBUTION WIDTH 13.4 % (10.0-14.5); WHITE BLOOD COUNT 4.5 10^3/uL (4.3-11.0)
[2016-12-05 10:44] LABS: ALANINE AMINOTRANSFERASE 53 U/L (0-55); ALBUMIN 4.1 G/DL (3.2-4.5); ANION GAP 10 MMOL/L (5-14); ASPARTATE AMINO TRANSFERASE 53 U/L (5-34); BILIRUBIN,TOTAL 0.6 MG/DL (0.1-1.0); BLOOD UREA NITROGEN 16 MG/DL (7-18); BUN/CREATININE RATIO 17; CARBON DIOXIDE 25 MMOL/L (21-32); CHLORIDE 105 MMOL/L (98-107); CREATININE SERUM 0.93 MG/DL (0.60-1.30); GFR ESTIMATED > 60; GLUCOSE 229 MG/DL (70-105); POTASSIUM 4.3 MMOL/L (3.6-5.0); SODIUM 140 MMOL/L (135-145); TOTAL PROTEIN 6.8 G/DL (6.4-8.2)
== END 2016-12-19 | disposition home or self-care (01) ==
LOC: ONC 10:04
PROVIDERS: ATTEND Internal Medicine Hematology & Oncology
DX: C19 Malignant neoplasm of rectosigmoid junction (principal); C78.7 Secondary malignant neoplasm of liver and intrahepatic bile duct; E11.9 Type 2 diabetes mellitus without complications; Z79.899 Other long term (current) drug therapy; Z45.2 Encounter for adjustment and management of vascular access device
CPT/HCPCS: 80053; 82378; 85025; 96523; 99213

== ENCOUNTER → 2016-12-05 | Outpatient (CLI) | payer MEDICARE, OTHER | LOC: LAB 10:18 | PROVIDERS: ATTEND Nurse Practitioner Family | DX: E11.65 Type 2 diabetes mellitus with hyperglycemia (principal) | CPT/HCPCS: 36415; 83036 ==

== ENCOUNTER 2017-04-16 11:00 | Outpatient (CLI) | payer MEDICARE, OTHER ==
[~2017-04-16] VITALS: Ht 182.9 cm; Wt 149.7 kg
[~2017-04-16 11:00] MED LIST changes: +CHOL200059 PO; +CITA40TA19 PO; +GABA-488 PO; -LATA2.5D5 OP; +LATA2.5D5 OU; +METF1000 PO; +METO-270 PO; +MULT-141 PO
== END 2017-04-16 11:32 ==
LOC: PREOP 11:00
PROVIDERS: ATTEND Surgery
DX: Z01.818 Encounter for other preprocedural examination (principal); D12.6 Benign neoplasm of colon, unspecified; Z80.0 Family history of malignant neoplasm of digestive organs

== ENCOUNTER 2017-04-17 07:23 | Day surgery (SDC) | payer MEDICARE, OTHER ==
[~2017-04-17] VITALS: Ht 182.9 cm; Wt 149.7 kg
[~2017-04-17 07:23] MED LIST changes: -METO-270 PO; +METO-387 PO
[2017-04-17] MEDS ORDERED: LACTATED RINGERS 1,000 ML IV ONE (07:31)
[2017-04-17] MEDS ORDERED: LACTATED RINGERS 1,000 ML IV STA (07:36)
--- OUTSIDE RECORDS SUMMARY | 2017-04-17 07:36 | XMS REPORT | Clinical Summary ---
Author Author [facility] Organization [facility] Address Unknown Phone Unavailable Care Team Providers Care Faucet Polisher Name Role Phone PCP Unavailable Source Comments Some departments are not documenting in the electronic medical record. If you do not see the information that you expected, contact Release of Information in the Health Information Management department at [phone] for further assistance in locating additional records.[facility] Allergies Active Allergy Reactions Severity Noted Date Comments Sulfa (Sulfonamide UNKNOWN 12/25/2013 Was a child Antibiotics) Current Medications Prescription [...] Types Packs/Day Years Used Date Never Smoker Sex Assigned at Date Recorded Not on file Last Filed Vital Signs Vital Sign Reading Time Taken Blood Pressure 129/68 06/08/2015 11:45 AM AIR POLLUTION CONTROL ENGINEER Pulse 69 06/08/2015 11:45 AM AIR POLLUTION CONTROL ENGINEER Temperature 37.1 C (98.8 F) 12/25/2013 2:48 PM CDT Respiratory Rate - - Oxygen Saturation - - Inhaled Oxygen - - Concentration Weight 147 kg (324 lb) 06/08/2015 11:45 AM AIR POLLUTION CONTROL ENGINEER Height 182.9 cm (6') 06/08/2015 11:45 AM AIR POLLUTION CONTROL ENGINEER Body Mass Index 43.94 06/08/2015 11:45 AM AIR POLLUTION CONTROL ENGINEER Plan of Treatment Health Maintenance Due Date Last Done Comments HEPATITIS C SCREENING 1951 PHYSICAL (COMPREHENSIVE) 1958 EXAM PERTUSSIS VACCINE 1962 TETANUS VACCINE 1968 BREAST CANCER SCREENING 1991 COLORECTAL CANCER 2001 SCREENING SHINGLES VACCINE 2011 OSTEOPOROSIS SCREENING 2016 PREVNAR/PNEUMOVAX (#1) 2016 INFLUENZA VACCINE 04/29/2017 Results Not on filefrom Last 3 Months
--- OUTSIDE RECORDS SUMMARY | 2017-04-17 07:36 | XMS REPORT ---
Author Author MANASA Edward [facility] Address Unknown Care Team Providers Care Information Management Manager Name Role Phone MANASA Edward Unavailable PROBLEMS Unknown Problems ALLERGIES Substance Reaction Event Type Date Status Sulfa Drugs Unknown Non Drug Allergy Jun, Active SOCIAL HISTORY No smoking Hx information available PLAN OF CARE Activity Details Follow Up 3 Weeks Reason:Marydel seat/TE VITAL SIGNS Blood pressure systolic 144 mmHg 2016-07-13 Blood pressure diastolic 74 mmHg 2016-07-13 MEDICATIONS Medication Instructions Dosage Frequency Start Date End Date Duration Status Celexa Active Vitamin B 12 Active Gabapentin Active Toprol XL Active Pravastatin Sodium Active Travatan Z Active Metformin HCl Active RESULTS No Results PROCEDURES Procedure Date Ordered Related Diagnosis Body Site CROWN - PORCELAIN/CERAMIC SUBSTRATE Apr 24, 2016 CORE BUILDUP INCLUDING ANY PINS Jul 13, 2016 Billing Notes on claim Jul 13, 2016 IMMUNIZATIONS No Known Immunizations
--- NOTE | 2017-04-17 07:46 | Progress Note-Pre Operative ---
Pre-Operative Progress Note H&P Reviewed The H&P was reviewed, patient examined and no changes noted. Date Seen by Provider: Apr 17, 2017 Time Seen by Provider: 07:45 Date H&P Reviewed: Apr 17, 2017 Time H&P Reviewed: 07:45 Pre-Operative Diagnosis: history polyps, history rectal cancer JOSHUA MENDEZ DO Apr 17, 2017 07:46
[2017-04-17 07:47] VITALS: BP 126/57
[2017-04-17] MEDS ORDERED: MIDAZOLAM 2 MG/2 ML (VERSED) VIAL ONE (08:15)
[2017-04-17] MEDS ORDERED: PROPOFOL INJECTION 50 ML IV ONE (08:15)
[2017-04-17 09:15] VITALS: BP 148/56
--- NOTE | 2017-04-17 09:32 | Progress Note-Post Operative ---
Post-Operative Progess Note Surgeon (s)/Director Of Clinical Education (s) Surgeon JOSHUA MENDEZ DO Director Of Clinical Education: na Pre-Operative Diagnosis history polyps, history rectal cancer Post-Operative Diagnosis ascending and transverse colon polyp Procedure & Operative Findings Date of Procedure 04/17/17 Procedure Performed/Findings colonoscopy c hot bx polypectomy and snare polypectomy Anesthesia Type per mda Estimated Blood Loss Estimated blood loss (mL): none Specimens/Packing Specimens Removed colon polyps JOSHUA MENDEZ DO Apr 17, 2017 09:32
--- NOTE | 2017-04-17 09:33 | Discharge Inst-Simple/Standard ---
Discharge Inst-Standard Patient Instructions/Follow Up Plan of Care/Instructions/FU: 2 weeks david Activity as Tolerated: Yes Discharge Diet: Regular Diet JOSHUA MENDEZ DO Apr 17, 2017 09:33
[2017-04-17 09:45] VITALS: BP 155/60
[2017-04-17 09:58] VITALS: BP 155/60
--- NOTE | 2017-04-17 10:29 | OPERATIVE REPORT ---
DATE OF SERVICE: 04/17/2017 PREOPERATIVE DIAGNOSIS: History of colon polyps, history of rectal cancer. POSTOPERATIVE DIAGNOSIS: Colon polyps, ascending colon polyp and transverse colon polyp. PROCEDURE: Colonoscopy with hot biopsy polypectomy and snare polypectomy. SURGEON: Joshua Hubbard DO ANESTHESIA: Per MDA. ESTIMATED BLOOD LOSS: None. COMPLICATIONS: None. INDICATIONS: The patient is a 66-year-old female with history of rectal cancer and history of multiple polyps. She understands risks and benefits of procedure and wished to proceed with procedure. Consent was on chart. DESCRIPTION OF PROCEDURE: The patient was taken to the endoscopy suite, placed in left lateral recumbent position. Timeout was performed. Digital rectal exam was performed and there were no palpable polyps, mass or ulcerations. The scope was inserted in the rectum and advanced all the way to the cecum with minimal difficulty. Prep was adequate. Scope was slowly retracted back. There were no polyps, mass or ulcerations in the cecum. Within the ascending colon, a small polyp was present, which hot biopsy polypectomy was performed. The scope was continued to be slowly retracted back and in the transverse colon, a small polyp was present, which snare polypectomy was performed. Specimen obtained for pathology. Scope continued to be slowly retracted back. There were no other polyps, masses or ulcerations within the remainder of the transverse, descending and sigmoid colon. In the rectum, the scope was inserted and retracted multiple times. The anastomosis from previous surgical intervention was noted and had normal appearance. The scope was slowly retracted back until completely removed, noting no other pathology. The patient tolerated procedure well without any complications. She was taken to the recovery room in stable condition. She will follow up in the office in 2 weeks to discuss pathology results. RECOMMENDATIONS: Would recommend repeat colonoscopy in three years. If she has any problems prior to that, she should be reevaluated at that time. Job ID: [id number] DocumentID: [id number] Dictated Date: 04/17/2017 09:37:21 Music Instructor Date: 04/17/2017 10:28:54 Dictated By: JOSHUA HUBBARD DO
== END 2017-04-17 09:50 | disposition home or self-care (01) ==
LOC: ENDO 07:23
PROVIDERS: ATTEND Surgery
DX: E78.00 Pure hypercholesterolemia, unspecified; Z85.048 Personal history of other malignant neoplasm of rectum, rectosigmoid junction, and anus; K63.5 Polyp of colon; Z79.84 Long term (current) use of oral hypoglycemic drugs; E66.01 Morbid (severe) obesity due to excess calories; Z79.899 Other long term (current) drug therapy; Z86.010 Personal history of colon polyps; I10 Essential (primary) hypertension; Z12.11 Encounter for screening for malignant neoplasm of colon; Z68.41 Body mass index [BMI] 40.0-44.9, adult; D12.3 Benign neoplasm of transverse colon; E11.42 Type 2 diabetes mellitus with diabetic polyneuropathy; G47.33 Obstructive sleep apnea (adult) (pediatric)
CPT/HCPCS: 88305

== ENCOUNTER 2017-12-04 10:37 | Outpatient (RCR) | payer MEDICARE, OTHER ==
[~2017-12-04 10:37] MED LIST changes: +ACHD5005 PO; -HYDR-3812 PO; -METF1000 PO; +METF10002 PO; -METF500T4 PO; +METF500T5 PO
[2017-12-04 12:17] LABS: BASOPHILS % (AUTO) 1 % (0-10); EOSINOPHILS # (AUTO) 0.2 10^3/uL (0.0-0.3); EOSINOPHILS % (AUTO) 5 % (0-10); HEMATOCRIT 42 % (35-52); HEMOGLOBIN 14.1 G/DL (11.5-16.0); LYMPHOCYTES % (AUTO) 41 % (12-44); MEAN CORPUSCULAR HEMOGLOBIN 30 PG (25-34); MEAN CORPUSCULAR HGB CONC 34 G/DL (32-36); MEAN CORPUSCULAR VOLUME 89 FL (80-99); MEAN PLATELET VOLUME 9.2 FL (7.4-10.4); MONOCYTES # (AUTO) 0.3 X 10^3 (0.0-1.0); MONOCYTES % (AUTO) 7 % (0-12); NEUTROPHILS # (AUTO) 2.3 X 10^3 (1.8-7.8); NEUTROPHILS % (AUTO) 47 % (42-75); PLATELET COUNT 224 10^3/uL (130-400); WHITE BLOOD COUNT 4.9 10^3/uL (4.3-11.0)
[2017-12-04 12:43] LABS: ALANINE AMINOTRANSFERASE 64 U/L (0-55); ALBUMIN 4.3 GM/DL (3.2-4.5); ALKALINE PHOSPHATASE 53 U/L (40-136); BILIRUBIN,TOTAL 0.6 MG/DL (0.1-1.0); BUN/CREATININE RATIO 18; CALCIUM 10.4 MG/DL (8.5-10.1); CARBON DIOXIDE 27 MMOL/L (21-32); CHLORIDE 106 MMOL/L (98-107); CREATININE SERUM 0.85 MG/DL (0.60-1.30); GFR ESTIMATED > 60; GLUCOSE 148 MG/DL (70-105); POTASSIUM 4.7 MMOL/L (3.6-5.0); SODIUM 142 MMOL/L (135-145); TOTAL PROTEIN 7.4 GM/DL (6.4-8.2)
== END 2018-03-04 | disposition home or self-care (01) ==
LOC: ONC 10:37
PROVIDERS: ATTEND Internal Medicine Hematology & Oncology
DX: C19 Malignant neoplasm of rectosigmoid junction (principal); C78.7 Secondary malignant neoplasm of liver and intrahepatic bile duct; E11.9 Type 2 diabetes mellitus without complications; Z79.899 Other long term (current) drug therapy
CPT/HCPCS: 36415; 80053; 82378; 85025; 99213

== ENCOUNTER 2018-12-03 10:26 | Outpatient (RCR) | payer MEDICARE, OTHER ==
[2018-12-03 10:25] LABS: BASOPHILS # (AUTO) 0.1 10^3/uL (0.0-0.1); BASOPHILS % (AUTO) 1 % (0-10); EOSINOPHILS # (AUTO) 0.3 10^3/uL (0.0-0.3); EOSINOPHILS % (AUTO) 5 % (0-10); HEMATOCRIT 42 % (35-52); HEMOGLOBIN 14.1 G/DL (11.5-16.0); LYMPHOCYTES # (AUTO) 2.2 X 10^3 (1.0-4.0); LYMPHOCYTES % (AUTO) 38 % (12-44); MEAN CORPUSCULAR HEMOGLOBIN 30 PG (25-34); MEAN CORPUSCULAR HGB CONC 34 G/DL (32-36); MEAN CORPUSCULAR VOLUME 89 FL (80-99); MEAN PLATELET VOLUME 9.1 FL (7.4-10.4); MONOCYTES # (AUTO) 0.5 X 10^3 (0.0-1.0); MONOCYTES % (AUTO) 9 % (0-12); NEUTROPHILS # (AUTO) 2.7 X 10^3 (1.8-7.8); NEUTROPHILS % (AUTO) 46 % (42-75); PLATELET COUNT 230 10^3/uL (130-400); WHITE BLOOD COUNT 5.8 10^3/uL (4.3-11.0)
[~2018-12-03 10:26] MED LIST changes: +METF-397 PO; +METF-399 PO; -METF10002 PO; -METF500T5 PO
[2018-12-03 10:41] LABS: ALANINE AMINOTRANSFERASE 74 U/L (0-55); ALBUMIN 4.3 GM/DL (3.2-4.5); ALKALINE PHOSPHATASE 57 U/L (40-136); BILIRUBIN,TOTAL 0.6 MG/DL (0.1-1.0); BUN/CREATININE RATIO 18; CALCIUM 10.1 MG/DL (8.5-10.1); CARBON DIOXIDE 25 MMOL/L (21-32); CHLORIDE 105 MMOL/L (98-107); GFR ESTIMATED > 60; GLUCOSE 190 MG/DL (70-105); POTASSIUM 4.1 MMOL/L (3.6-5.0); SODIUM 139 MMOL/L (135-145); TOTAL PROTEIN 7.3 GM/DL (6.4-8.2)
== END 2019-03-03 | disposition home or self-care (01) ==
LOC: ONC 10:26
PROVIDERS: ATTEND Internal Medicine Hematology & Oncology
DX: C19 Malignant neoplasm of rectosigmoid junction (principal); C78.7 Secondary malignant neoplasm of liver and intrahepatic bile duct; E11.9 Type 2 diabetes mellitus without complications; Z79.899 Other long term (current) drug therapy
CPT/HCPCS: 36415; 80053; 82378; 85025; 99213

== ENCOUNTER → 2019-01-01 | Outpatient (CLI) | payer MEDICARE, OTHER ==
--- NOTE | 2019-01-01 12:41 | Diagnostic Imaging Report ---
INDICATION: Routine screening. COMPARISON: 09/20/2016 and 07/02/2015. TECHNIQUE: 2D and 3D bilateral screening mammography was performed with CAD. FINDINGS: Scattered fibroglandular densities are identified bilaterally. The parenchymal pattern appears stable. No mass or malignant appearing microcalcifications are seen. There are benign calcifications present. The axillae are unremarkable. IMPRESSION: No mammographic features suspicious for malignancy are identified. ACR BI-RADS Category 2: Benign findings. Result letter will be mailed to the patient. Note: At least 10% of breast cancer is not imaged by mammography. Dictated by: Dictated on workstation # [id number]
== END ==
LOC: RAD 10:37
PROVIDERS: ATTEND Nurse Practitioner Adult Health
DX: Z12.31 Encounter for screening mammogram for malignant neoplasm of breast (principal)
CPT/HCPCS: 77067

== ENCOUNTER 2019-05-20 08:49 | Outpatient (CLI) | payer MEDICARE, OTHER ==
[~2019-05-20] VITALS: Ht 182.9 cm; Wt 143.6 kg
[2019-05-20] MEDS ORDERED: GLIP5TAB13 PO (11:43)
[2019-05-20] MEDS ORDERED: ASPI-586 PO (11:43)
== END 2019-05-20 11:46 | disposition home or self-care (01) ==
LOC: PREOP 08:49
PROVIDERS: ATTEND Surgery
DX: Z01.818 Encounter for other preprocedural examination (principal)

== ENCOUNTER 2019-06-17 08:35 | Day surgery (SDC) | payer MEDICARE, OTHER ==
[~2019-06-17] VITALS: Ht 182.9 cm; Wt 143.6 kg
[~2019-06-17 08:35] MED LIST changes: +ASPI-586 PO; +GLIP5TAB13 PO
[2019-06-17] MEDS ORDERED: LACTATED RINGERS 1,000 ML IV ONE (08:39)
[2019-06-17] MEDS ORDERED: LACTATED RINGERS 1,000 ML IV STA (08:44)
[2019-06-17 08:53] VITALS: BP 158/77
[2019-06-17] MEDS ORDERED: PROPOFOL INJECTION 50 ML IV ONE (08:53)
[2019-06-17] MEDS ORDERED: MIDAZOLAM 2 MG/2 ML (VERSED) VIAL ONE (08:54)
[2019-06-17 10:05] VITALS: BP 101/50
[2019-06-17 10:10] VITALS: BP 131/62
--- NOTE | 2019-06-17 10:11 | Anesthesia-General Post-Op ---
MAC Patient Condition Mental Status/LOC: Same as Preop Cardiovascular: Satisfactory Nausea/Vomiting: Absent Respiratory: Satisfactory Pain: Controlled Complications: Absent Post Op Complications Complications None Follow Up Care/Instructions Patient Instructions None needed. Anesthesiology Discharge Order Discharge Order Patient is doing well, no complaints, stable vital signs, no apparent adverse anesthesia problems. No complications reported per nursing. ELIZABETH COELHO CRNA Jun 17, 2019 10:11 POS
--- NOTE | 2019-06-17 10:12 | Progress Note-Post Operative ---
Post-Operative Progess Note Surgeon (s)/Engine Cowling Installer (s) Surgeon JOSHUA MENDEZ DO Engine Cowling Installer: NA Pre-Operative Diagnosis history polyps, history rectal cancer Post-Operative Diagnosis Colon Polyps Procedure & Operative Findings Date of Procedure 06/17/19 Procedure Performed/Findings Colonoscopy with hot biopsy polypectomy x 1 and snare polypectomy x2 Anesthesia Type per AIR CONDITIONING ENGINEER Estimated Blood Loss Estimated blood loss (mL): None Specimens/Packing Specimens Removed Descending polyp x 1 Sigmoid Polyp x2 JOSHUA MENDEZ DO Jun 17, 2019 10:12 POS
--- NOTE | 2019-06-17 10:19 | Discharge Inst-Simple/Standard ---
Discharge Inst-Standard Patient Instructions/Follow Up Plan of Care/Instructions/FU: 2 weeks Stevie Activity as Tolerated: Yes Discharge Diet: Regular Diet JOSHUA MENDEZ DO Jun 17, 2019 10:18 POS
[2019-06-17 10:20] VITALS: BP 131/62
[2019-06-17 10:40] VITALS: BP 125/68
--- NOTE | 2019-06-17 17:58 | OPERATIVE REPORT ---
DATE OF SERVICE: 06/17/2019 PREOPERATIVE DIAGNOSES: History of colon polyps, history of rectal cancer. POSTOPERATIVE DIAGNOSIS: Colon polyps. PROCEDURE: Colonoscopy with hot biopsy polypectomy x1 and snare polypectomy x2 of the sigmoid. SURGEON: Joshua Hubbard DO ANESTHESIA: Per SPECIMEN TECHNICIAN. ESTIMATED BLOOD LOSS: None. COMPLICATIONS: None. INDICATIONS: The patient is a 68-year-old female with a history of rectal cancer. She understands risks and benefits of procedure and wished to proceed with procedure. Consent was signed and on the chart. DESCRIPTION OF PROCEDURE: The patient was taken to the endoscopy suite, placed in left lateral recumbent position. Timeout was performed. Digital rectal exam was performed. There were no palpable polyps, masses or ulcerations. Scope was inserted in the rectum, advanced all the way to cecum with minimal difficulty. Prep was adequate. Scope was then slowly retracted back. There were no polyps, masses or ulcerations within the cecum, ascending, and transverse colon. In the descending colon, a small polyp was present, which hot biopsy polypectomy was performed. Scope was continuously retracted back into the sigmoid where there were 2 polyps present right next to each other, which snare polypectomy was performed on these and obtained for specimen. Scope was then continued slowly retracted back into the rectum, where it was also retroflexed noting no other pathology. The previous anastomosis was easily visualized. No evidence of any recurrence. Scope was then slowly retracted back until completely removed. The patient tolerated procedure well without complications and taken to the recovery room in stable condition. RECOMMENDATIONS: The patient will need repeat colonoscopy in 3 years. Any issues before that be seen at that time. Job ID: [id number] DocumentID: [id number] Dictated Date: 06/17/2019 10:11:44 Telephone Interviewer Date: 06/17/2019 17:57:48 Dictated By: JOSHUA HUBBARD DO
== END 2019-06-17 10:40 | disposition home or self-care (01) ==
LOC: ENDO 08:35
PROVIDERS: ATTEND Surgery
DX: Z12.11 Encounter for screening for malignant neoplasm of colon (principal); D12.4 Benign neoplasm of descending colon; D12.5 Benign neoplasm of sigmoid colon; L98.9 Disorder of the skin and subcutaneous tissue, unspecified; E11.40 Type 2 diabetes mellitus with diabetic neuropathy, unspecified; G47.33 Obstructive sleep apnea (adult) (pediatric); I10 Essential (primary) hypertension; E78.00 Pure hypercholesterolemia, unspecified; E78.5 Hyperlipidemia, unspecified; E66.01 Morbid (severe) obesity due to excess calories; Z68.41 Body mass index [BMI] 40.0-44.9, adult; M19.91 Primary osteoarthritis, unspecified site; F32.9 Major depressive disorder, single episode, unspecified; F41.9 Anxiety disorder, unspecified; Z79.82 Long term (current) use of aspirin; Z79.84 Long term (current) use of oral hypoglycemic drugs; Z79.899 Other long term (current) drug therapy; Z85.048 Personal history of other malignant neoplasm of rectum, rectosigmoid junction, and anus; Z88.2 Allergy status to sulfonamides
CPT/HCPCS: 82962

== ENCOUNTER → 2020-01-09 | Outpatient (CLI) | payer MEDICARE, OTHER ==
[~2020-01-09] MED LIST changes: -METO-387 PO
[2020-01-09 10:22] LABS: BASOPHILS # (AUTO) 0.1 10^3/uL (0.0-0.1); BASOPHILS % (AUTO) 1 % (0-10); EOSINOPHILS # (AUTO) 0.4 10^3/uL (0.0-0.3); EOSINOPHILS % (AUTO) 9 % (0-10); HEMATOCRIT 40 % (35-52); HEMOGLOBIN 13.5 G/DL (11.5-16.0); LYMPHOCYTES # (AUTO) 1.7 X 10^3 (1.0-4.0); LYMPHOCYTES % (AUTO) 35 % (12-44); MEAN CORPUSCULAR HEMOGLOBIN 30 PG (25-34); MEAN CORPUSCULAR HGB CONC 34 G/DL (32-36); MEAN CORPUSCULAR VOLUME 90 FL (80-99); MONOCYTES # (AUTO) 0.4 X 10^3 (0.0-1.0); MONOCYTES % (AUTO) 7 % (0-12); NEUTROPHILS # (AUTO) 2.3 X 10^3 (1.8-7.8); NEUTROPHILS % (AUTO) 48 % (42-75); PLATELET COUNT 194 10^3/uL (130-400); WHITE BLOOD COUNT 4.9 10^3/uL (4.3-11.0)
[2020-01-09 10:56] LABS: ALANINE AMINOTRANSFERASE 43 U/L (0-55); ALKALINE PHOSPHATASE 53 U/L (40-136); BILIRUBIN,TOTAL 0.3 MG/DL (0.1-1.0); BUN/CREATININE RATIO 17; CALCIUM 9.6 MG/DL (8.5-10.1); CARBON DIOXIDE 22 MMOL/L (21-32); CHLORIDE 104 MMOL/L (98-107); CREATININE SERUM 0.88 MG/DL (0.60-1.30); GFR ESTIMATED > 60; GLUCOSE 209 MG/DL (70-105); SODIUM 139 MMOL/L (135-145)
== END ==
LOC: EDSTATUS 03-04 10:05 → ONC 10:12
PROVIDERS: ATTEND Internal Medicine Hematology & Oncology
DX: C20 Malignant neoplasm of rectum (principal)
CPT/HCPCS: 80053; 82378; 85025; G0463; 99213

== ENCOUNTER → 2020-02-02 | Outpatient (CLI) | payer MEDICARE, OTHER ==
--- NOTE | 2020-02-02 11:48 | Diagnostic Imaging Report ---
INDICATION: Routine screening. COMPARISON: 01/01/2019 and 09/20/2016. TECHNIQUE: 2D and 3D bilateral screening mammography was performed with CAD. FINDINGS: Scattered fibroglandular densities are identified bilaterally. A nodular density in the central left breast is stable. There are scattered benign calcifications. No new mass or malignant appearing microcalcifications are seen. The axillae are unremarkable. IMPRESSION: No mammographic features suspicious for malignancy are identified. ACR BI-RADS Category 2: Benign findings. Result letter will be mailed to the patient. Note: At least 10% of breast cancer is not imaged by mammography. Dictated by: Dictated on workstation # [id number]
== END ==
LOC: RAD 09:24
PROVIDERS: ATTEND Internal Medicine Hematology & Oncology
DX: Z12.31 Encounter for screening mammogram for malignant neoplasm of breast (principal)
CPT/HCPCS: 77063; 77067

== ENCOUNTER → 2021-01-06 | Outpatient (CLI) | payer MEDICARE, OTHER | LOC: ONC 13:09 | PROVIDERS: ATTEND Internal Medicine Hematology & Oncology | DX: Z12.31 Encounter for screening mammogram for malignant neoplasm of breast (principal); I10 Essential (primary) hypertension; E11.9 Type 2 diabetes mellitus without complications; E78.00 Pure hypercholesterolemia, unspecified; E78.5 Hyperlipidemia, unspecified; E66.01 Morbid (severe) obesity due to excess calories; Z85.048 Personal history of other malignant neoplasm of rectum, rectosigmoid junction, and anus; Z92.21 Personal history of antineoplastic chemotherapy; Z92.3 Personal history of irradiation; Z93.2 Ileostomy status; Z80.52 Family history of malignant neoplasm of bladder; Z80.51 Family history of malignant neoplasm of kidney | CPT/HCPCS: 99213 ==

== ENCOUNTER → 2021-03-02 | Outpatient (CLI) | payer MEDICARE, OTHER ==
--- NOTE | 2021-03-02 12:11 | Diagnostic Imaging Report ---
INDICATION: Routine screening. Comparison is made with prior mammogram from 02/02/2020 and 01/01/2019. 2-D and 3-D bilateral screening mammography was performed with CAD. Scattered fibroglandular densities are identified bilaterally. The parenchymal pattern is stable. No mass or malignant-appearing microcalcifications are seen. There are benign calcifications present. Axillae are unremarkable. IMPRESSION: BI-RADS Category 2 No mammographic features suspicious for malignancy are identified. ACR BI-RADS Category 2: Benign findings. Result letter will be mailed to the patient. Note: At least 10% of breast cancer is not imaged by mammography. Dictated by: Dictated on workstation # [id number]
== END ==
LOC: RAD 10:45
PROVIDERS: ATTEND Nurse Practitioner Adult Health
DX: Z12.31 Encounter for screening mammogram for malignant neoplasm of breast (principal)
CPT/HCPCS: 77063; 77067

== ENCOUNTER → 2021-07-05 | Outpatient (CLI) | payer MEDICARE, OTHER ==
--- NOTE | 2021-07-05 13:05 | Diagnostic Imaging Report ---
Indication: Back pain for several months 3 views of the lumbosacral spine shows normal height of the vertebral bodies. There is several millimeters of spondylolisthesis at L4-L5. There is mild disc space narrowing and spondylosis at all levels. There are mild degenerated facets most pronounced in the lower lumbar spine. No fracture or other acute abnormality is seen. IMPRESSION: There is degenerative disc and facet disease present with a grade 1 spondylolisthesis at L4-L5. No acute abnormality is seen. Dictated by: Dictated on workstation # [id number]
--- NOTE | 2021-07-05 13:05 | Diagnostic Imaging Report ---
Indication: Neck pain radiating to the right shoulder 3 views of the cervical spine shows normal height and alignment of the vertebral bodies. There is disc space narrowing and mild spondylosis at C5-C6. There are mild degenerated facets. No fracture or other acute abnormality is seen. IMPRESSION: There are degenerative changes present with no acute abnormality seen. Dictated by: Dictated on workstation # [id number]
--- NOTE | 2021-07-05 13:07 | Diagnostic Imaging Report ---
Indication: Right shoulder pain for several months 3 views of the right shoulder shows no fracture, dislocation or other acute abnormality. No significant degenerative changes are seen. IMPRESSION: No abnormality is seen. Dictated by: Dictated on workstation # [id number]
== END ==
LOC: RAD 11:12
PROVIDERS: ATTEND Nurse Practitioner Family
DX: M47.816 Spondylosis without myelopathy or radiculopathy, lumbar region (principal); M51.36 Other intervertebral disc degeneration, lumbar region; M43.16 Spondylolisthesis, lumbar region; M47.812 Spondylosis without myelopathy or radiculopathy, cervical region; M25.511 Pain in right shoulder
CPT/HCPCS: 72040; 72100; 73030

== ENCOUNTER → 2021-07-29 | Outpatient (CLI) | payer MEDICARE, OTHER ==
--- NOTE | 2021-07-29 14:07 | Diagnostic Imaging Report ---
PROCEDURE: MR imaging cervical spine without contrast. TECHNIQUE: Multiplanar, multisequence MR imaging of the cervical spine was performed without contrast. INDICATION: Chronic neck pain. COMPARISON: 07/05/2021. FINDINGS: No acute fracture or dislocation is seen in the cervical spine. There is normal alignment of the cervical spine. The vertebral body heights and disc spaces are well maintained. The bone marrow signal is unremarkable. No focal osseous lesions. The craniocervical junction is maintained. The cervical spinal cord demonstrates normal intrinsic signal. No epidural collections are seen. The included brainstem and posterior fossa have normal appearance. Multilevel degenerative changes are seen in the cervical spine with posterior disc bulges and uncovertebral arthropathy. C2-C3: Uncovertebral arthropathy results in no significant spinal canal narrowing and no right and mild left foraminal narrowing. C3-C4: Posterior disc bulge and uncovertebral arthropathy results in moderate spinal canal stenosis and no right and mild left foraminal narrowing. C4-C5: Posterior disc bulge and uncovertebral arthropathy results in moderate spinal canal stenosis and mild right and mkml-ux-esnvfyel left foraminal narrowing. C5-C6: Posterior disc bulge, uncovertebral arthropathy, and buckling of the ligamentum flavum results in severe spinal canal stenosis and severe right and moderate to severe left foraminal stenosis. C6-C7: No significant spinal canal or foraminal stenosis. C7-T1: No significant spinal canal or foraminal stenosis. The soft tissues of neck are unremarkable. IMPRESSION: 1. No acute fracture or dislocation of the cervical spine. 2. Multilevel degenerative changes in the cervical spine, greatest at C5-C6. Dictated by: Dictated on workstation # [id number]
--- NOTE | 2021-07-29 15:08 | Diagnostic Imaging Report ---
PROCEDURE: MRI lumbar spine without contrast. TECHNIQUE: Multiplanar, multisequence MRI of the lumbar spine was performed without contrast. INDICATION: Chronic low back pain. COMPARISON: 07/05/2021. FINDINGS: Five lumbar type vertebral bodies are visualized with the last well-formed disc space designated L5-S1. No acute fracture or dislocation is seen in the lumbar spine. There is grade 1 anterolisthesis of L4 on L5. Vertebral body heights and disc spaces are well-maintained. Fatty replacement of the bone marrow is seen at the inferior endplate of L4 extending inferiorly into the sacrum. These findings may represent posttreatment changes. No suspicious focal lesions are seen. The conus terminates at the L1 level. No masses are seen associated with the conus or nerve roots of the cauda equina. No epidural collections are identified. Multilevel degenerative changes are seen in the lumbar spine with disc bulges, facet hypertrophy, and buckling of the ligamentum flavum. T12-L1: No significant spinal canal or foraminal stenosis. L1-L2: Broad-based disc bulge, facet hypertrophy, and buckling of ligamentum flavum results in mild spinal canal narrowing and no significant foraminal narrowing. L2-L3: Broad-based disc bulge, facet hypertrophy, and buckling of ligamentum flavum results in moderate spinal canal stenosis and mild bilateral foraminal narrowing. L3-L4: Broad-based disc bulge, facet hypertrophy, and buckling of ligamentum flavum results in mild spinal canal narrowing and no significant foraminal narrowing. L4-L5: Broad-based disc bulge, facet hypertrophy, and buckling of the ligamentum flavum results in severe spinal canal stenosis and moderate right and mild left foraminal stenosis. L5-S1: Broad-based disc bulge with superimposed left subarticular protrusion, facet hypertrophy, and buckling of the ligamentum flavum results in moderate spinal canal stenosis, severe left lateral recess stenosis, and no right and ttoo-rr-ayjzzynn left foraminal narrowing. Paravertebral soft tissues are unremarkable. IMPRESSION: 1. No acute fracture or dislocation in the lumbar spine. 2. Multilevel degenerative changes in the lumbar spine, greatest at L4-L5 and L5-S1. Dictated by: Dictated on workstation # [id number]
== END ==
LOC: RAD 13:15
PROVIDERS: ATTEND Nurse Practitioner Family
DX: M47.812 Spondylosis without myelopathy or radiculopathy, cervical region (principal); M47.816 Spondylosis without myelopathy or radiculopathy, lumbar region; M47.817 Spondylosis without myelopathy or radiculopathy, lumbosacral region
CPT/HCPCS: 72141; 72148

== ENCOUNTER 2022-02-08 05:40 | Outpatient (CLI) | payer MEDICARE, OTHER ==
[~2022-02-08] VITALS: Ht 180.3 cm; Wt 134.3 kg
[2022-02-08] MEDS ORDERED: CLOP75TA69 PO (11:25)
[2022-02-08] MEDS ORDERED: GLIP10TA13 PO (11:25)
[2022-02-08] MEDS ORDERED: OMEG1CAP58 PO (11:25)
== END 2022-02-08 11:26 | disposition home or self-care (01) ==
LOC: PREOP 05:40
PROVIDERS: ATTEND Surgery
DX: Z01.818 Encounter for other preprocedural examination (principal)

== ENCOUNTER 2022-02-21 06:40 | Day surgery (SDC) | payer MEDICARE, OTHER ==
[~2022-02-21] VITALS: Ht 180.3 cm; Wt 134.3 kg
[~2022-02-21 06:40] MED LIST changes: +CLOP75TA69 PO
[2022-02-21] MEDS ORDERED: LACTATED RINGERS 1,000 ML IV STA (07:09)
[2022-02-21 07:28] VITALS: BP 153/89
[2022-02-21] MEDS ORDERED: MIDAZOLAM 2 MG/2 ML (VERSED) VIAL ONE (07:37)
[2022-02-21] MEDS ORDERED: PROPOFOL INJECTION 50 ML IV ONE (07:37)
[2022-02-21 08:58] VITALS: BP 118/55
--- NOTE | 2022-02-21 09:01 | Progress Note-Post Operative ---
Post-Operative Progess Note Surgeon (s)/Water Jet Loom Fixer (s) Surgeon JOSHUA MENDEZ DO Water Jet Loom Fixer: na Pre-Operative Diagnosis history polyps, history rectal cancer Post-Operative Diagnosis colon polyps x 2 Procedure & Operative Findings Date of Procedure 02/21/22 Procedure Performed/Findings colonoscopy c hot bx polypectomy x 2 Anesthesia Type per childcare center administrator Estimated Blood Loss Estimated blood loss (mL): none Specimens/Packing Specimens Removed cecal and ascending colon polyps JOSHUA MENDEZ DO Feb 21, 2022 09:01
--- NOTE | 2022-02-21 09:02 | Discharge Inst-Simple/Standard ---
Discharge Inst-Standard Patient Instructions/Follow Up Plan of Care/Instructions/FU: Stevie 2 weeks Restart Plavix in 4 days. Activity as Tolerated: Yes Discharge Diet: Regular Diet JOSHUA MENDEZ DO Feb 21, 2022 09:02
[2022-02-21 09:20] VITALS: BP 134/73
[2022-02-21 09:42] VITALS: BP 134/73
--- NOTE | 2022-02-21 12:22 | Anesthesia-General Post-Op ---
MAC Patient Condition Mental Status/LOC: Same as Preop Cardiovascular: Satisfactory Nausea/Vomiting: Absent Respiratory: Satisfactory Pain: Controlled Complications: Absent Post Op Complications Complications None Follow Up Care/Instructions Patient Instructions None needed. Anesthesiology Discharge Order Discharge Order Patient is doing well, no complaints, stable vital signs, no apparent adverse anesthesia problems. No complications reported per nursing. TAMI MURDOCK CRNA Feb 21, 2022 12:22
--- NOTE | 2022-02-21 13:36 | OPERATIVE REPORT ---
DATE OF SERVICE: 02/21/2022 PREOPERATIVE DIAGNOSIS: History of polyps, history of rectal cancer. POSTOPERATIVE DIAGNOSIS: Colon polyps x2. PROCEDURE: Colonoscopy with hot biopsy polypectomy x2. SURGEON: Joshua Hubbard DO ANESTHESIA: Per ASSISTANT BOYS TRACK COACH. ESTIMATED BLOOD LOSS: None. COMPLICATIONS: None. SPECIMENS: Cecal polyp and ascending colon polyp. INDICATIONS: The patient is a 71-year-old female with history of polyps and rectal cancer. She understands risks and benefits of procedure and wishes to proceed. Consent was signed in the chart. DESCRIPTION OF PROCEDURE: The patient was taken to the endoscopy suite, placed in left lateral recumbent position. Timeout was performed. Digital rectal exam was performed. No palpable polyps, masses or ulcerations. Scope was inserted in the rectum and advanced all the way to cecum with minimal difficulty. Prep was adequate. Scope was slowly retracted back. Polyp in the cecum was grasped, elevated and cauterized. Scope was then continued slowly retracted back. Within the descending, a small polyp was present, which hot biopsy polypectomy was performed. Scope was then continuously retracted back. No polyps within the remainder of the ascending, transverse, descending and sigmoid colon. Anastomosis was visualized. No evidence of any recurrence. Scope was retroflexed noting no other pathology. Scope was returned to its normal position, slowly withdrawn until completely removed. The patient tolerated procedure well without any complications. She was taken to recovery room in stable condition. RECOMMENDATIONS: The patient will need repeat colonoscopy in three years for reevaluation. Any issues before that be seen at that time. CC: Dr. Brown - requested, unable to deliver. Job ID: [id number] DocumentID: [id number] Dictated Date: 02/21/2022 09:00:18 Cabinet And Trim Installer Date: 02/21/2022 13:36:14 Dictated By: JOSHUA HUBBARD DO
== END 2022-02-21 09:38 | disposition home or self-care (01) ==
LOC: ENDO 06:40
PROVIDERS: ATTEND Surgery
DX: Z12.11 Encounter for screening for malignant neoplasm of colon (principal); D12.0 Benign neoplasm of cecum; D12.2 Benign neoplasm of ascending colon; E11.9 Type 2 diabetes mellitus without complications; H61.892 Other specified disorders of left external ear; Z85.048 Personal history of other malignant neoplasm of rectum, rectosigmoid junction, and anus; Z79.84 Long term (current) use of oral hypoglycemic drugs; Z79.82 Long term (current) use of aspirin; E66.01 Morbid (severe) obesity due to excess calories; Z68.41 Body mass index [BMI] 40.0-44.9, adult; Z88.2 Allergy status to sulfonamides
CPT/HCPCS: 82947; 88305